=== PATIENT | female | born 1980 | race Caucasian/White ===

== ENCOUNTER 2024-09-20 16:54 | Inpatient (IN) | payer OTHER, SELFPAY ==
--- NOTE | 2024-09-20 18:13 | PC.NURSE ---
Patient cooperative with skin check complete with RN LATESHA and RN VENKAT. Bilateral leg edema with small open area on shins. No oozing or weeping observed. Reddened area under R breast, L groin fold.
[2024-09-20 18:22] VITALS: BP 132/71; PULSE 97; RESP 18; TEMP 36.2; O2SAT 98
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
[2024-09-20] MEDS: cephALEXin 500 MG CAPSULE PO (19:22)
[2024-09-20] MEDS: LORazepam 0.5 MG TABLET PO (19:22)
[2024-09-20] MEDS: Acetaminophen 325 MG TABLET 650 MG PO (19:24)
--- OUTSIDE RECORDS SUMMARY | 2024-09-20 20:23 | XMS_ITS | Encounter Summary ---
Author Organization [facility] Address [address] [place] [address] Care Team Providers Care Physician Internist Name Role Phone Stefanie Marques MD Primary Care Provider [phone] Reason for Visit * Reason Comments Mental Health Problem Encounter Details Date Type Department Care Team (Late st Contact Info) Description 09/09/2024 11:10 AM EST - 09/10/2024 1:[address] [facility] Emergency Department [address] [place] [address] Ashley Scales MD [address] [place] [phone] Barbara Navarro MD [address] [place] [id number] Gera Li MD [address] [place] [phone] Maddy (HCC) (Primary Dx) [facility]charge [facility]position: [facility] (INPT Psych facility/unit) (65) Social History Tobacco Use Types Packs/Day Years Used Date Smoking Tobacco: Former Cigarettes Smokeless Tobacco: Never Comments:: Alcohol Use Standard Drinks/Week Comments Yes 0 (1 standard drink = 0.6 oz pur e alcohol) socially Comments No Sex and Gender Information Value Date Recorded Sex Assigned at Female 06/22/2023 2:42 PM EST Legal Sex Female 6:16 AM EDT Gender Identity Not on file Sexual Orientation Straight 06/22/2023 2: 42 PM EST documented as of this encounter Last Filed Vital Signs Vital Sign Reading Time Taken Comments Blood Pressure 148/87 09/09/2024 8:18 PM EST Pulse 95 09/09/2024 8:18 PM EST Temperature 36.8 ??C (98.2 ??F) 09/09/2024 8:18 PM ES T Respiratory Rate 18 09/09/2024 8:18 PM EST Oxygen Saturation 99% 09/09/2024 8:18 PM EST Inhaled Oxygen Concentration - - Weight - - Height - - Body Mass Index - - documented in this encounter Medications at Time of Discharge acetaminophen (TYLENOL) 325 mg tablet Take 2 tablets (650 mg total) by mouth every 4 hours as needed for pain. 10/07/2022 aspirin 81 mg EC tablet Take 1 tablet (81 mg total) by mouth once a day. 10/08/2022 cholecalciferol (VITAMIN D3) 2,000 unit tablet Take 1 tablet by mouth once a day. docusate sodium (COLACE) 100 mg capsule Take 1 capsule (100 mg total) by mouth 2 times a day. 10/07/2022 escitalopram (LEXAPRO) 10 mg tablet Take 10 mg by mouth once a day. ferrous sulfate 325 mg (65 mg iron) tablet Take 325 mg by mouth daily with breakfast. fish oil 340-1,000 mg capsule Take 1,000 mg by mouth once a day. hydrOXYzine (ATARAX) 50 mg tablet Take 50 mg by mouth 3 times a day as needed for anxiety. labetaloL (NORMODYNE) 200 mg tablet Take 1 tablet (200 mg total) by mouth every 12 hours. 60 tablet 10/07/2022 lamoTRIgine (LaMICtal) 150 mg tablet Take 225 mg by mouth once a day. loratadine (CLARITIN) 10 mg tablet Take 10 mg by mouth daily. 03/20/2016 LORazepam (ATIVAN) 0.5 mg tablet Take 0.5 mg by mouth 2 times a day as needed for anxiety. multivitamin (THERAGRAN) tablet Take 1 tablet by mouth once a day. NIFEdipine XL (PROCARDIA XL) 90 mg tablet Take 90 mg by mouth daily. nystatin (MYCOSTATIN) 100,000 unit/gram powder Apply 1 application. topically to the affected area 3 times a day. Under breasts OLANZapine (ZyPREXA) 20 mg tablet Take 20 mg by mouth nightly. With 5 mg for a total of 25 mg OLANZapine (ZyPREXA) 5 mg tablet Take 15 mg by mouth nightly. omeprazole (PriLOSEC) 40 mg capsule Take 1 capsule by mouth once a day. prazosin (MINIPRESS) 2 mg capsule Take 6 mg by mouth nightly. QUEtiapine (SEROquel) 100 mg tablet Take 150 mg by mouth nightly. QUEtiapine (SEROquel) 300 mg tablet Take 300 mg by mouth nightly. 09/08/2024 senna (SENOKOT) 8.6 mg tablet Take 2 tablets (17.2 mg total) by mouth nightly. 10/07/2022 umeclidinium-orestes anteroL (Anoro Ellipta) 62.5-25 mcg/actuation blister with device Inhale 1 puff by mouth once a day. documented as of this encounter ED Notes * Ashley Scales MD - 09/09/2024 11:03 AM EST History HPI: Chief Complaint Patient presents with Mental Health Problem 44-year-old female history of schizoaffective disorder, borderline personality disorder presenting to the emergency department she says because the police told her that she needed to go and get checked out and get her legs checked out. She states that she has had chronic leg edema for many months now and that her primary doctor fired her. She has been trying everything and they are not any better. Her history is somewhat limited because her speech is pressured. She states that she does not wantto hurt herself. Patient History Past Medical History: Diagnosis Date Anemia Anxiety Borderline personality disorder (CMS/HCC) (HCC) Cellulitis Cellulitis of right breast 09/25/2016 Depression GERD (gastroesophageal reflux disease) Gout HLD (hyperlipidemia) HTN (hypertension) PTSD (post-traumatic stress disorder) Restrictive lung disease Schizoaffective disorder, bipolar type (CMS/HCC) (HCC) Vertigo Past Surgical History: Procedure Laterality Date CHOLECYSTECTOMY ID APPENDECTOMY N/A History of Appendectomy ID DELIVERY ONLY N/A History of Section ID REMOVAL OF FALLOPIAN TUBE N/A History of Salpingectomy WISDOM TOOTH EXTRACTION No family history on file. Social History Tobacco Use Smoking status: Former Current packs/day: 0.50 Types: Cigarettes Smokeless tobacco: Never Tobacco comments: : Vaping Use Vaping status: Never Used Substance Use Topics Alcohol use: Yes Comment: socially Drug use: No Vaping Questions Responses Vaping Use Never User Sexuality and Gender Identity Sexuality Patient's sexual orientation: Straight Legal Information Legal first name: Darleen Legal last name: Margo Legal sex: Female Gender Identity Patient's sex assigned at : Female Organ Inventory Organs the patient currently has: Organs present at or expected at to develop: Organs surgically enhanced or constructed: Organs hormonally enhanced or developed: breasts cervix ovaries uterus vagina penis prostate testes Review of Systems Review of Systems Unable to perform ROS: Psychiatric disorder Cardiovascular: Positive for leg swelling. Physical Exam Physical Exam ED Triage Vitals Temp Pulse Resp BP SpO2 -- -- -- -- -- Temp src Heart Rate Source Patient Position BP Location Set FiO2 (O2%) -- -- -- -- -- Physical Exam Vitals and nursing note reviewed. Constitutional: General: She is not in acute distress. Appearance: She is well-developed. HENT: Head: Normocephalic. Eyes: Conjunctiva/sclera: Conjunctivae normal. Pupils: Pupils are equal, round, and reactive to light. Cardiovascular: Rate and Rhythm: Normal rate and regular rhythm. Pulmonary: Effort: Pulmonary effort is normal. Breath sounds: Normal breath sounds. Abdominal: General: Bowel sounds are normal. Palpations: Abdomen is soft. Musculoskeletal: General: Normal range of motion. Cervical back: Normal range of motion and neck supple. Right lower leg: Edema present. Left lower leg: Edema present. Comments: Has chronic appearing lower extremity lymphedema without any overlying cellulitis bilaterally. 2+ pedal pulse bilaterally Skin: General: Skin is warm and dry. Neurological: Mental Status: She is alert. Comments: Patient is awake and alert but somewhat agitated and has pressured speech and is yelling at everyone. Medical Decision Making and ED Course Assessment and Plan: 44-year-old female history of borderline personality disorder as well as schizoaffective presenting to the emergency department with subacute chronic lymphedema which is what herexam most closely correlates with. She does not feel like she wants to hurt herself however the police told her that she needed to come to the emergency department to be evaluated. I do think becauseof her dysregulated behavior and her statements today she is not likely able to protect herself in the community without further evaluation by [facility] and to determine her safety. I did offer her testinginto her lower extremity swelling though I think that it is unlikely to be high yield. It appears that she has now allowed for this to happen. She is signed out on section 12 pending [facility] evaluation Darleen Aragon : 1980 CSN: [id number] Ashley Scales MD 09/09/24 1522 documented in this encounter Miscellaneous Notes * ED Continuation of Care - Barbara Navarro MD - 09/09/2024 7:06 PM EST ED Continuation of Care 09/09/24 7:06 PM Sign out from Dr. Ashley Scales Md MDM Pt seen by [facility]. No safety concerns but patient is manic. Patient agreeable to CSU bed. Does not need Sec 12 anymore. Sec 12 no longer in effect. ED Course as of 09/11/24 0738 ThuSep 09, [id number] I assumed care at 8:45 PM of this 44F who will be CSU bed search voluntarily [PL] ED Course User Index [PL] Gera Li MD Darleen Ryan Butlersydnie : 1980 CSN: [id number] documented in this encounter Plan of Treatment Upcoming Encounters Date Type Department Care Team (Late st Contact Info) Description 09/29/2024 8:30 AM EDT Office Visit [facility] [address] [facility] [address] [place] [address] Jose Haskins, OD [address] [place] [address] documented as of this encounter Procedures * Due to [facility] law, this organization might not be sharing negative HIV tests. Procedure Name Priority Date/Time Associated Diagnosis Comments N-TERMINAL PROBRAIN NATRIURETIC PEPTIDE STAT 09/09/2024 4:51 PM EST CBC AUTO DIFFERENTIAL STAT 09/09/2024 4:51 PM EST BASIC METABOLIC PANEL STAT 09/09/2024 4:51 PM EST documented in this encounter Results * Due to [place] [employer] law, this organization might not be sharing negative HIV tests. * (ABNORMAL) BMP - Basic Metabolic Panel (09/09/2024 4:51 PM EST) NA 139 135 - 145 mmol/L 09/09/2024 5:25 PM EST [facility] K 4.7 3.5 - 5.3 mmol/L 09/09/2024 5:25 PM EST [facility] Cl 101 98 - 107 mmol/L 09/09/2024 5:25 PM EST [facility] CO2 22 22 - 32 mmol/L 09/09/2024 5:25 PM EST [facility] BUN 10 7 - 23 mg/dL 09/09/2024 5:25 PM EST [facility] Creatinine 0.84 0.50 - 1.20 mg/dL 09/09/2024 5:25 PM EST [facility] Glucose 96 65 - 99 mg/dL 09/09/2024 5:25 PM EST [facility] Calcium 9.6 8.6 - 10.5 mg/dL 09/09/2024 5:25 PM EST [facility] Anion Gap 16(H) 5 - 15 09/09/2024 5:25 PM EST [facility] eGFR 87 >=60 mL/min/1. 73m2 09/09/2024 5:25 PM EST [facility] Comment:The estimated glomer ular filtration rate (eGFR) is calculated using a new formula developed by the NKF-ASN task force to eliminate race-based correction factors. The new formula uses serum/plasma creatinine, age, and gender to determine eGFR. A value below 60mls/min might indicate kidney disease and will be flagged. For additional information, see Olive et al, Am J Kidney Dis. 2021;79(2):268- 288, A Unifying Approach for GFR estimation: Recommendations of the NKF-ASN Task Force on Reassessing the Inclusion of Race in Diagnosing Kidney Disease . Blood Structure of peripheral vein / Unknown Venipuncture / Unknown 09/09/2024 4:51 PM EST 09/09/2024 4:51 PM EST us Ashley Scales MD LAB BLOOD ORDERABLES Breonna l Result [facility] [address] [place] [address], * (ABNORMAL) NT-proBNP (09/09/2024 4:51 PM EST) Pro-B-Type Natriuretic Peptide 365(H) <300 pg/mL 09/09/2024 5:28 PM EST [facility] Comment: Patient Age:? Congestive Heart Failure (CHF) Risk <18 Years:?Not Established 18-49 Years:? <300 pg/mL - Normal, CHF Unlikely ?>=450 pg/mL - High Probability of CHF 50-75 Years:? <300 pg/mL - Normal, CHF Unlikely ?>=900 pg/mL - High Probability of CHF >75 Years:?<300 pg/mL - Normal, CHF Unlikely ?>=1800 pg/mL - High Probability of CHF Blood Structure of peripheral vein / Unknown Venipuncture / Unknown 09/09/2024 4:51 PM EST 09/09/2024 4:51 PM EST us Ashley Scales MD LAB BLOOD ORDERABLES Breonna l Result [facility] [address] [place] [address], [place] * (ABNORMAL) CBC Auto Differential (09/09/2024 4:51 PM EST) WBC 10.0 3.8 - 10.8 10*3/uL 09/09/2024 4:56 PM EST [facility] RBC 4.93 3.80 - 5.10 10*6/uL 09/09/2024 4:56 PM EST [facility] Hemoglobin 13.2 11.7 - 15.5 g/dL 09/09/2024 4:56 PM EST [facility] Hematocrit 40.7 35.0 - 45.0 % 09/09/2024 4:56 PM EST [facility] MCV 82.6 80.0 - 100.0 fL 09/09/2024 4:56 PM EST [facility] MCH 26.8(L) 27.0 - 33.0 pg 09/09/2024 4:56 PM EST [facility] MCHC 32.4 32.0 - 36.0 g/dL 09/09/2024 4:56 PM EST [facility] RDW 14.8 11.0 - 15.0 % 09/09/2024 4:56 PM EST [facility] Platelets 367 140 - 400 10*3/uL 09/09/2024 4:56 PM EST [facility] MPV 9.9 7.5 - 12.5 fL 09/09/2024 4:56 PM EST [facility] Neutrophil % 73.6 % 09/09/2024 4:56 PM EST [facility] Immature Grans % 0.6 0.0 - 0.9 % 09/09/2024 4:56 PM EST [facility] Lymphocyte % 17.5 % 09/09/2024 4:56 PM EST [facility] Monocyte % 7.9 % 09/09/2024 4:56 PM EST [facility] Eosinophil % 0.1 % 09/09/2024 4:56 PM EST [facility] Basophil % 0.3 % 09/09/2024 4:56 PM EST [facility] Neutrophil # 7.32 1.50 - 7.80 10*3/uL 09/09/2024 4:56 PM EST [facility] Immature Grans # 0.06(H) <=0.03 10*3/uL 09/09/2024 4:56 PM EST [facility] Lymphocyte # 1.70 0.85 - 3.90 10*3/uL 09/09/2024 4:56 PM EST [facility] Monocyte # 0.80 0.20 - 0.95 10*3/uL 09/09/2024 4:56 PM EST [facility] Eosinophil # <0.03 0.02 - 0.50 10*3/uL 09/09/2024 4:56 PM EST [facility] Basophil # <0.03 0.00 - 0.20 10*3/uL 09/09/2024 4:56 PM EST [facility] nRBC % 0.0 /100 WBCs 09/09/2024 4:56 PM EST [facility] nRBC # <0.01 <0.01 10*3/uL 09/09/2024 4:56 PM EST [facility] Blood Structure of peripheral vein / Unknown Venipuncture / Unknown 09/09/2024 4:51 PM EST 09/09/2024 4:51 PM EST us Ashley Scales MD LAB BLOOD ORDERABLES Breonna l Result [facility] [address] [place] [address], documented in this encounter Visit Diagnoses Diagnosis Maddy (HCC)- Primary Bipolar I disorder, single manic episode, unspecified documented in this encounter Administered Medications Inactive Administered Medications - up to 3 most recent administrations Medication Order MAR Action Action Date Dose Rate Site acetaminophen (TYLENOL) tablet 650 mg 650 mg, oral, Once, On Thu09/09/24 at 1840, 1 dose, Patient may have acetaminophen for Pain/Headache/Fever >38C. Do not administer if patient has received Acetaminophen (Tylenol) within the past 4 hours. Max dose 975mg Given 09/09/2024 6:39 PM EST 650 mg labetaloL (NORMODYNE) tablet 200 mg 200 mg, oral, 2 times daily, First dose on Thu09/09/24 at 2100, Until Discontinued, Hold for SBP less than 100 mmHg or HR less than 50 bpm. Given 09/09/2024 8:35 PM EST 200 mg OLANZapine (ZyPREXA) tablet 15 mg 15 mg, oral, Nightly, First dose on Thu09/09/24 at 2100, Until Discontinued Given 09/09/2024 8:36 PM EST 15 mg prazosin (MINIPRESS) capsule 6 mg 6 mg, oral, Nightly, First dose on Thu09/09/24 at 2100, Until Discontinued Given 09/09/2024 8:36 PM EST 6 mg QUEtiapine (SEROquel) tablet 150 mg 150 mg, oral, Nightly, First dose on Thu09/09/24 at 2100, Until Discontinued Given 09/09/2024 8:36 PM EST 150 mg documented in this encounter Active and Recently Administered Medications Times are shown in EST. Scheduled Medication Order 09/08/2024 09/09/2024 09/10/2024 acetaminophen (TYLENOL) tablet 650 mg (COMPLETED) 650 mg, oral, Once, On Thu09/09/24 at 1840, 1 dose, Patient may have acetaminophen for Pain/Headache/Fever >38C. Do not administer if patient has received Acetaminophen (Tylenol) within the past 4 hours. Max dose 975mg 1839 (Given - Provider: Seamus Sampson RN) aspirin EC tablet 81 mg 81 mg, oral, Daily, First dose on Thu09/10/24 at 0900, Until Discontinued, Do not crush. cholecalciferol (VITAMIN D3) tablet 2,000 Units 2,000 Units, oral, Daily, First dose on Thu09/10/24 at 0900, Until Discontinued, Vitamin D3 1000 units = 25 mcg docusate sodium (COLACE) capsule 100 mg 100 mg, oral, 2 times daily, First dose on Thu09/10/24 at 0900, Until Discontinued escitalopram (LEXAPRO) tablet 10 mg 10 mg, oral, Daily, First dose on Thu09/10/24 at 0900, Until Discontinued ferrous sulfate EC tablet 325 mg 325 mg, oral, Daily, First dose on 09/10/24 at 0900, Until Discontinued, Do not chew or crush. Administer with water or juice between meals for maximum absorption. May administer with food if GI upset occurs; do not administer with milk or milk products. fish oil capsule 1,200 mg 1,200 mg, oral, Daily, First dose on Thu09/10/24 at 0900, Until Discontinued labetaloL (NORMODYNE) tablet 200 mg 200 mg, oral, 2 times daily, First dose on Thu09/09/24 at 2100, Until Discontinued, Hold for SBP less than 100 mmHg or HR less than 50 bpm. 2034 (Given - Provider: Dayna Flanagan RN) lamoTRIgine (LaMICtal) tablet 225 mg 225 mg, oral, Daily, First dose on Thu09/10/24 at 0900, Until Discontinued loratadine (CLARITIN) tablet 10 mg 10 mg, oral, Daily, First dose on Thu09/10/24 at 0900, Until Discontinued LORazepam (ATIVAN) injection 2 mg 2 mg, intramuscular, Once, On Thu09/09/24 at 1135, 1 dose 113 (Not Given - Provider: Manjula Sampson RN - Reason: Patient/family refused) miconazole 2% powder topical, 2 times daily, First dose on Thu09/10/24 at 0900, Until Discontinued, Apply to under breast multivitamin 1 tablet 1 tablet, oral, Daily, First dose on Thu09/10/24 at 0900, Until Discontinued NIFEdipine XL (PROCARDIA XL) tablet 90 mg 90 mg, oral, Daily, First dose on Thu09/10/24 at 0900, Until Discontinued, Do not crush. OLANZapine (ZyPREXA) injection 10 mg 10 mg, intramuscular, Once, On Thu09/09/24 at 1135, 1 dose, Reconstitute with 2.1 mL of sterile water for injection. Concentration = 5 mg/mL. 1134 (Not Given - Provider: Manjula Sampson RN - Reason: Patient/family refused) OLANZapine (ZyPREXA) tablet 15 mg 15 mg, oral, Nightly, First dose on Thu09/09/24 at 2100, Until Discontinued 2035 (Given - Provider: Dayna Flanagan RN) pantoprazole DR (PROTONIX) tablet 40 mg 40 mg, oral, Daily, First dose on 09/10/24 at 0900, Until Discontinued, Do not crush. prazosin (MINIPRESS) capsule 6 mg 6 mg, oral, Nightly, First dose on Thu09/09/24 at 2100, Until Discontinued 2035 (Given - Provider: Dayna Flanagan, RYAN) QUEtiapine (SEROquel) tablet 150 mg 150 mg, oral, Nightly, First dose on Thu09/09/24 at 2100, Until Discontinued 2035 (Given - Provider: Dayna Flanagan RN) senna (SENOKOT) tablet 17.2 mg 17.2 mg, oral, Nightly, First dose on Thu09/09/24 at 2100, Until Discontinued 2036 (Not Given - Provider: Dayna Flanagan RN - Reason: Patient/family refused) tiotropium-olodateroL (STIOLTO RESPIMAT) 2.5 mcg-2.5 mcg mist inhaler 2 puff 2 puff, inhalation, Daily, First dose on 09/10/24 at 0900, Until Discontinued PRN Medication Order 09/08/2024 09/09/2024 09/10/2024 acetaminophen (TYLENOL) tablet 650 mg 650 mg, oral, Every 4 hours PRN, pain, Starting on Thu09/09/24 at 2012, Until 09/10/24 at 0325 hydrOXYzine HCL (ATARAX) tablet 50 mg 50 mg, oral, 3 times daily PRN, anxiety, Starting on Thu09/09/24 at 2014, Until 09/10/24 at 0325 LORazepam (ATIVAN) tablet 0.5 mg 0.5 mg, oral, 2 times daily PRN, anxiety, Starting on Thu09/09/24 at 2012, Until 09/10/24 at 0325 documented in this encounter Care Teams Physician Internist Relationship Specialty Start Date End Date Stefanie Marques MD [address] [place] [phone] PCP - General Internal Medicine 04/07/18 documented as of this encounter
--- OUTSIDE RECORDS SUMMARY | 2024-09-20 20:23 | XMS_ITS | Clinical Summary ---
Author Organization [facility] Address [address] [place] [address] Care Team Providers [facility] Name Role Phone Stefanie Marques MD Primary Care Provider [phone] Allergies Active Allergy Reactions Criticality Noted Date Comments Haloperidol Psychosis 09/19/2024 Medications * This document contains information received from the source organization and may not represent a complete record from that organization. loratadine (CLARITIN) 10 mg tablet Take 10 mg by mouth daily. 03/20/20 16 Active NIFEdipine XL (PROCARDIA XL) 90 mg tablet Take 90 mg by mouth daily. Active ferrous sulfate 325 mg (65 mg iron) tablet Take 325 mg by mouth daily with breakfast. Active lamoTRIgine (LaMICtal) 150 mg tablet Take 225 mg by mouth once a day. Active QUEtiapine (SEROquel) 100 mg tablet Take 150 mg by mouth nightly. Active OLANZapine (ZyPREXA) 5 mg tablet Take 15 mg by mouth nightly. Active hydrOXYzine (ATARAX) 50 mg tablet Take 50 mg by mouth 3 times a day as needed for anxiety. Active prazosin (MINIPRESS) 2 mg capsule Take 6 mg by mouth nightly. Active cholecalcifero l (VITAMIN D3) 2,000 unit tablet Take 1 tablet by mouth once a day. Active multivitamin (THERAGRAN) tablet Take 1 tablet by mouth once a day. Active OLANZapine (ZyPREXA) 20 mg tablet Take 20 mg by mouth nightly. With 5 mg for a total of 25 mg Active acetaminophen (TYLENOL) 325 mg tablet Take 2 tablets (650 mg total) by mouth every 4 hours as needed for pain. 10/08/19 Active aspirin 81 mg EC tablet Take 1 tablet (81 mg total) by mouth once a day. 10/09/19 Active docusate sodium (COLACE) 100 mg capsule Take 1 capsule (100 mg total) by mouth 2 times a day. 10/08/19 Active labetaloL (NORMODYNE) 200 mg tablet Take 1 tablet (200 mg total) by mouth every 12 hours. 60 tablet 10/08/19 025 Active Additional Information Patient taking differently:200 mg oral2 times daily, Reported on 09/09/2024 senna (SENOKOT) 8.6 mg tablet Take 2 tablets (17.2 mg total) by mouth nightly. 10/08/19 Active fish oil 340-1,000 mg capsule Take 1,000 mg by mouth once a day. Active nystatin (MYCOSTATIN) 100,000 unit/gram powder Apply 1 application. topically to the affected area 3 times a day. Under breasts Active omeprazole (PriLOSEC) 40 mg capsule Take 1 capsule by mouth once a day. Active LORazepam (ATIVAN) 0.5 mg tablet Take 0.5 mg by mouth 2 times a day as needed for anxiety. Active escitalopram (LEXAPRO) 10 mg tablet Take 10 mg by mouth once a day. Active umeclidinium-v ilanteroL (Anoro Ellipta) 62.5-25 mcg/actuation blister with device Inhale 1 puff by mouth once a day. Active escitalopram (LEXAPRO) 10 mg tablet Take 1 tablet by mouth once a day. Active hydrOXYzine (VISTARIL) 50 mg capsule Take 50 mg by mouth daily as needed for anxiety. Active prazosin (MINIPRESS) 2 mg capsule Take 2 capsules by mouth at bed time. Active QUEtiapine (SEROquel) 300 mg tablet Take 300 mg by mouth nightly. 09/08/19 Active lithium ER (Lithobid) 300 mg tablet Take 600 mg by mouth at bed time. Active omeprazole OTC (PriLOSEC OTC) 20 mg EC tablet Take 20 mg by mouth daily. 04/29/20 16 025 Discontinued (Therapy Completed or No Longer Needed) mirtazapine (REMERON) 45 mg tablet Take 45 mg by mouth nightly. 025 Discontinued (Therapy Completed or No Longer Needed) methocarbamoL (ROBAXIN) 500 mg tablet Take 1 tablet (500 mg total) by mouth 2 times a day. 20 tablet 01/20/20 025 Discontinued (Therapy Completed or No Longer Needed) lidocaine (LIDODERM) 5% patch Apply 1 patch topically to the affected area once a day. Remove and discard patch within 12 hours or as directed. 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) 2019 Bipolar disorder 09/22/2019 Posttraumatic stress disorder 09/22/2019 Morbid obesity 08/23/2018 Obstructive sleep apnea syndrome 02/08/2018 Overview (06/30/2023): severe Premature menopause 06/22/2017 Iron deficiency 12/10/2016 Restrictive lung disease 12/10/2016 Lactose intolerance 09/25/2016 Gout 09/19/2016 Infertility, female 07/28/2016 GERD (gastroesophageal reflux disease) 6 Amenorrhea 04/29/2016 Breast hypertrophy 04/11/2015 Fungal dermatitis 04/11/2015 Back pain 04/11/2015 Morbid obesity with BMI of 50.0-59.9, adult 03/21 Urinary incontinence in female 11/24/2014 Shoulder pain, left 11/24/2014 Shingles 09/25/2014 Constipation 09/21/2014 Hypokalemia 09/21/2014 Pharyngitis, acute 05/23/2014 Allergic rhinitis 03/16/2014 Schizophrenia 03/16/2014 Hypertension, benign 03/16/2014 Overview (04/10/2017): Patient actively trying to get , limiting meds to only those safe for Resolved Problems Problem Noted Date Diagnosed Date Resolved Date Chest pain 10/04/2022 10/07/2022 Prolonged QT interval 10/04/20222022 Cellulitis of right breast 09/25/2016 1 08/31/2022 Encounters Date Type Department Care Team Description 09/19/2024 4:31 AM EST - 09/20/2024 3:14 PM EST Emergency [facility] Emergency Department [address] [place] [phone] Bruce Chester, Hans Pendleton, MD Chao, Dayna Stein, Gera Altamirano, MD Del Rio, Gabriel Stein, Ashley Lou MD Maddy (HCC) (Primary Dx) Discharge Disposition: [facility] () 09/09/2024 11:10 AM EST - 09/10/2024 1:23 AM EST Emergency [facility] Emergency Department [address] [place] [phone] Ashley Scales MD Costigan, Amy D, Gera Altamirano MD Maddy (HCC) (Primary Dx) Discharge Disposition: [facility] (INPT Psych facility/unit) (65) 08/25/2024 7:59 PM EST - 08/26/2024 10:22 AM [facility] Emergency [facility] Emergency Department [address] [place] [phone] Da Hawk MD McQuaide, Brian L., Gera Altamirano MD 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 (HCC) (Primary Dx) Discharge Disposition: [facility] () from Last 3 Months Social History Tobacco Use Types Packs/Day Years Used Date Smoking Tobacco: Former Cigarettes Smokeless Tobacco: Never Tobacco Cessation:Counseling Given: Not Answered Comments:: Alcohol Use Standard Drinks/Week Comments Yes 0 (1 standard drink = 0.6 oz pur e alcohol) socially Comments No Sex and Gender Information Value Date Recorded Sex Assigned at Female 06/22/2023 2:42 PM EST Legal Sex Female 6:16 AM EDT Gender Identity Not on file Sexual Orientation Straight 06/22/2023 2: 42 PM EST Last Filed Vital Signs Vital Sign Reading Time Taken Comments Blood Pressure 147/99 09/20/2024 8:11 AM EST Pulse 104 09/20/2024 8:11 AM EST Temperature 36.2 ??C (97.2 ??F) 09/19/2024 4:40 AM ES T Respiratory Rate 20 09/20/2024 8:11 AM EST Oxygen Saturation 97% 09/20/2024 8:11 AM EST Inhaled Oxygen Concentration - - Weight 174.6 kg (385 lb) 09/19/2024 4:38 AM EST Height 175.3 cm (5' 9 ) 01/20/2024 10:47 AM EDT Body Mass Index 56.85 01/20/2024 10:47 AM EDT Plan of Treatment Upcoming Encounters Date Type Department Care Team (Late st Contact Info) Description 09/29/2024 8:30 AM EDT Office Visit [facility] [address] [facility] [address] [place] [address] Jose Haskins, OD [address] [place] [address] Health Maintenance Due Date Last Done Comments Colonoscopy 1979 FOBT / Fit Test 1979 HIV Screening 1979 HPV and Pap Smear 1979 Sigmoidoscopy 1979 Hepatitis B Vaccines (1 of 3 - 19+ 3-dose series) 1998 DTaP,Tdap,and Td Vaccines (1 - Tdap) 2001 Cervical Cancer Screening 11/11/2004 Pap Smear 11/11/2004 11/11/2001 COVID-19 Vaccine (3 - season) 2024 01/27/2021, 01/06/2021 Influenza Vaccine (#1) 2024 Alcohol/Substance Use Screening 07/20/2024 Depression Evaluation 07/20/2024 Social Drivers of Health Annual Screening 07/20/2024 Mammogram 08/26/2025 08/26/2023, 11/0 11/2020, 05/23/2021 Basic Metabolic Panel 09/20/2025 09/20/2024 , 09/09/2024, 10/05/2022, Additional history exists Cologuard 06/26/2027 06/26/2024, 06/26/2024 Colon Cancer Screening 06/26/2027 RSV Vaccine (60+ years old and patients) (1 - 1-dose 75+ series) 2054 Hepatitis C Screening Completed 10/02/2011 Pneumococcal Vaccine: Pediatric (0-5 Years) and At-Risk Patients (6-50 Years) Aged Out No longer eligible based on patient's age to complete this topic Procedures * Due to [place] state law, this organization might not be sharing negative HIV tests. Procedure Name Priority Date/Time Associated Diagnosis Comments DRUGS OF ABUSE SCREEN, URINE STAT 09/20/2024 9:50 AM EST COMPREHENSIVE METABOLIC PANEL STAT 09/20/2024 9:16 AM EST CBC AUTO DIFFERENTIAL STAT 09/20/2024 9:16 AM EST LITHIUM LEVEL STAT 09/20/2024 9:16 AM EST BASIC METABOLIC PANEL STAT 09/09/2024 4:51 PM EST N-TERMINAL PROBRAIN NATRIURETIC PEPTIDE STAT 09/09/2024 4:51 PM EST CBC AUTO DIFFERENTIAL STAT 09/09/2024 4:51 PM EST RAPID COVID-19 RNA FOR SURVEILLANCE (ED ONLY) STAT 08/25/2024 9:36 PM EST HEPATITIS C ANTIBODY, CONVERSION Routine 10/02/2011 2:37 PM EDT PAP Routine 11/11/2001 10:07 AM EDT from Last 3 Months or Most Recently Relevant to Health Maintenance Results * Due to [place] state law, this organization might not be sharing negative HIV tests. * (ABNORMAL) Drugs of Abuse Screen, Urine (09/20/2024 9:50 AM EST) [facility] Amphetamine Screen, Urine Negative Negative 09/20/2024 10:22 AM EST [facility] Comment: Detection limit of 1000 ng/mL of d-Methamphetamine. Drug results are to be used only for medical purposes. ??Unconfirmed screening results must not be used for non-medical purposes. Barbiturate Screen, Urine Negative Negative 09/20/2024 10:22 AM EST [facility] Comment: Detection limit of 200 ng/mL of Secobarbital. Drug results are to be used only for medical purposes. ??Unconfirmed screening results must not be used for non-medical purposes. Benzodiazepine Screen, Urine Presumptive Positive(A) Negative 09/20/2024 10:22 AM EST [facility] Comment: Detection limit of 200 ng/mL of Nordiazepam. Drug results are to be used only for medical purposes. ??Unconfirmed screening results must not be used for non-medical purposes. Buprenorphine Screen, Urine Negative Negative 09/20/2024 10:22 AM EST [facility] Comment: Detection limit of 10 ng/mL of norbuprenorphine. Drug results are to be used only for medical purposes. ??Unconfirmed screening results must not be used for non-medical purposes. Cocaine Metabolite Screen, Urine Negative Negative 09/20/2024 10:22 AM EST [facility] Comment: Detection limit of 300 ng/mL of Benzoylecgonine. Drug results are to be used only for medical purposes. ??Unconfirmed screening results must not be used for non-medical purposes. Marijuana Screen, Urine Negative Negative 09/20/2024 10:22 AM EST [facility] Comment: Detection limit of 50 ng/mL of 40-Xme-pszjj-5-YMH-7-carboxylic acid. Drug results are to be used only for medical purposes. ??Unconfirmed screening results must not be used for non-medical purposes. Methadone Metabolite Screen, Urine Negative Negative 09/20/2024 10:22 AM EST [facility] Comment: Detection limit of 300 ng/mL of Methadone. Drug results are to be used only for medical purposes. ??Unconfirmed screening results must not be used for non-medical purposes. Oxycodone Screen, Urine Negative Negative 09/20/2024 10:22 AM EST [facility] Comment: Detection limit of 100 ng/mL of Oxycodone. Drug results are to be used only for medical purposes. ??Unconfirmed screening results must not be used for non-medical purposes. Opiate Screen, Urine Negative Negative 09/20/2024 10:22 AM EST [facility] Comment: Detection limit of 300 ng/mL of Morphine. Drug results are to be used only for medical purposes. ??Unconfirmed screening results must not be used for non-medical purposes. Fentanyl Screen, Urine Negative Negative 09/20/2024 10:22 AM EST [facility] Comment: Detection limit of 5 ng/mL of norfentanyl. Drug results are to be used only for medical purposes. ??Unconfirmed screening results must not be used for non-medical purposes. Urine Urine specimen collection, clean catch / Unknown Non-Blood Collection / Unknown 09/20/2024 9:50 AM EST 09/20/2024 9:50 AM EST us Ashley Scales MD LAB URINE ORDERABLES Breonna ku Result [facility] [address] [place] [address], * (ABNORMAL) CBC Auto Differential (09/20/2024 9:16 AM EST) Only the most recent of2 resultswithin the time period is included. WBC 6.6 3.8 - 10.8 10*3/uL 09/20/2024 9:25 AM EST [facility] RBC 4.90 3.80 - 5.10 10*6/uL 09/20/2024 9:25 AM EST [facility] Hemoglobin 13.2 11.7 - 15.5 g/dL 09/20/2024 9:25 AM EST [facility] Hematocrit 40.7 35.0 - 45.0 % 09/20/2024 9:25 AM EST [facility] MCV 83.1 80.0 - 100.0 fL 09/20/2024 9:25 AM EST [facility] MCH 26.9(L) 27.0 - 33.0 pg 09/20/2024 9:25 AM EST [facility] MCHC 32.4 32.0 - 36.0 g/dL 09/20/2024 9:25 AM EST [facility] RDW 14.7 11.0 - 15.0 % 09/20/2024 9:25 AM EST [facility] Platelets 310 140 - 400 10*3/uL 09/20/2024 9:25 AM EST [facility] MPV 10.2 7.5 - 12.5 fL 09/20/2024 9:25 AM EST [facility] Neutrophil % 64.1 % 09/20/2024 9:25 AM EST [facility] Immature Grans % 0.3 0.0 - 0.9 % 09/20/2024 9:25 AM EST [facility] Lymphocyte % 26.9 % 09/20/2024 9:25 AM EST [facility] Monocyte % 8.2 % 09/20/2024 9:25 AM EST [facility] Eosinophil % 0.2 % 09/20/2024 9:25 AM EST [facility] Basophil % 0.3 % 09/20/2024 9:25 AM EST [facility] Neutrophil # 4.20 1.50 - 7.80 10*3/uL 09/20/2024 9:25 AM EST [facility] Immature Grans # <0.03 <=0.03 10*3/uL 09/20/2024 9:25 AM EST [facility] Lymphocyte # 1.80 0.85 - 3.90 10*3/uL 09/20/2024 9:25 AM EST [facility] Monocyte # 0.50 0.20 - 0.95 10*3/uL 09/20/2024 9:25 AM EST [facility] Eosinophil # <0.03 0.02 - 0.50 10*3/uL 09/20/2024 9:25 AM EST [facility] Basophil # <0.03 0.00 - 0.20 10*3/uL 09/20/2024 9:25 AM EST [facility] nRBC % 0.0 /100 WBCs 09/20/2024 9:25 AM EST [facility] nRBC # <0.01 <0.01 10*3/uL 09/20/2024 9:25 AM EST [facility] Blood Structure of peripheral vein / Unknown Venipuncture / Unknown 09/20/2024 9:16 AM EST 09/20/2024 9:22 AM EST us Ashley Scales MD LAB BLOOD ORDERABLES Breonna l Result [facility] [address] [place] [address], [place] * (ABNORMAL) Geddes Level (09/20/2024 9:16 AM EST) Geddes <0.1(L) 0.6 - 1.2 mmol/L 09/20/2024 10:07 AM EST [facility] Blood Structure of peripheral vein / Unknown Venipuncture / Unknown 09/20/2024 9:16 AM EST 09/20/2024 9:22 AM EST us Dayna Chao MD LAB BLOOD ORDERABLES Breonna ku Result [facility] [address] [place] [id number], [place] * (ABNORMAL) Comprehensive Metabolic Panel (09/20/2024 9:16 AM EST) NA 140 135 - 145 mmol/L 09/20/2024 9:54 AM EST [facility] K 4.0 3.5 - 5.3 mmol/L 09/20/2024 9:54 AM EST [facility] Cl 104 98 - 107 mmol/L 09/20/2024 9:54 AM EST [facility] CO2 25 22 - 32 mmol/L 09/20/2024 9:54 AM EST [facility] Anion Gap 11 5 - 15 09/20/2024 9:54 AM EST [facility] Glucose 134(H) 65 - 99 mg/dL 09/20/2024 9:54 AM EST [facility] Creatinine 0.75 0.50 - 1.20 mg/dL 09/20/2024 9:54 AM EST [facility] Calcium 9.5 8.6 - 10.5 mg/dL 09/20/2024 9:54 AM EST [facility] Total Protein 7.2 6.0 - 8.0 g/dL 09/20/2024 9:54 AM EST [facility] Albumin 4.0 3.5 - 5.2 g/dL 09/20/2024 9:54 AM EST [facility] Bilirubin, Total 0.4 0.2 - 1.2 mg/dL 09/20/2024 9:54 AM EST [facility] Alkaline Phosphatase 88 35 - 129 U/L 09/20/2024 9:54 AM EST [facility] AST 23 10 - 40 U/L 09/20/2024 9:54 AM EST [facility] ALT 28 10 - 40 U/L 09/20/2024 9:54 AM EST [facility] BUN 12 7 - 23 mg/dL 09/20/2024 9:54 AM EST [facility] eGFR >90 >=60 mL/min/1 .73m2 09/20/2024 9:54 AM EST [facility] Comment:The estimated glomer ular filtration rate [...] of Race in Diagnosing Kidney Disease . Globulin, Total 3.2 2.1 - 4.2 g/dL 09/20/2024 9:54 AM EST [facility] A/G Ratio 1.3(L) 1.5 - 3.0 09/20/2024 9:54 AM EST [facility] Blood Structure of peripheral vein / Unknown Venipuncture / Unknown 09/20/2024 9:16 AM EST 09/20/2024 9:22 AM EST us Ashley Scales MD LAB BLOOD ORDERABLES Breonna ku Result [facility] [address] [place] [address], * (ABNORMAL) NT-proBNP (09/09/2024 4:51 PM EST) Pro-B-Type Natriuretic Peptide 365(H) <300 pg/mL 09/09/2024 5:28 PM EST [facility] Comment: Patient Age:? Congestive Heart Failure [...] Ashley Scales MD LAB BLOOD ORDERABLES Breonna kings Result [facility] [address] [place] [address], * (ABNORMAL) BMP - Basic Metabolic Panel [...] - 10.5 mg/dL 09/09/2024 5:25 PM EST [facility] Anion Gap 16(H) 5 - 15 09/09/2024 5:25 PM EST [facility] eGFR 87 >=60 mL/min/1. 73m2 09/09/2024 5:25 PM EST [facility] Comment:The estimated glomer ular filtration rate [...] MD LAB BLOOD ORDERABLES Breonna l Result [facility] [address] [place] [address], * Rapid COVID-19 for Surveillance - Psych/Admission (08/25/2024 9:36 PM EST) [facility] PCR, SARS CoV-2 RNA Not Detected Not Detected CEPHEID GENEXPERT 08/25/2024 10:14 PM EST [facility] Comment:A Not Detected (Nega tive) test result is indicative of the absence of SARS-CoV-2 RNA at the level of LoD (Limit of Detection). A negative result does not rule out the possibility of COVID-19 and should not be used as the sole basis for treatment or patient management decisions. If COVID-19 is still suspected, based on exposure history together with other clinical findings, re-testing should be considered. Swab Specimen from nasopharyngeal structure / Unknown 08/25/2024 9:36 PM EST 08/25/2024 9:36 PM EST Narrative [facility] - 08/25/2024 10:14 PM EST This test was developed, validated and its performance characteristics determined by [facility]. This test has not been cleared or approved by the U.S. Food and Drug Administration (FDA). FDA Policy for Diagnostic Tests for Coronavirus Disease-2019 during the Public Health Emergency issued October 03, 2019, is followed. us Da Hawk MD LAB BODY FLUIDS AND STOOLS ORDERABLES Final Result Performing Organization Address City/[facility]/ZIP Co de Phone Number [facility] [address] [place] [address], [place] * HEPATITIS C ANTIBODY, CONVERSION (10/02/2011 2:37 PM EDT) Pathologist [facility] Hepatitis C Antibody <0.02 <1.00 IV [facility] Comment: Negative Not infected with HCV, unless recent infection is suspected or other evidence exists to indicate HCV infection. 10/02/2011 2:37 PM EDT 10/02/2011 11:42 PM EDT us Yumiko ENRIQUE LAB HISTORICAL RESULTS Final Result Performing Organization Address [facility] Co de Phone Number [facility] [address] [place] [address], [place] * Pap (11/11/2001 10:07 AM EDT) Path Procedure VCE ([id number]) 1 ?? Edited by: [id number] GRETEL [facility] Specimen Labeled As: 1 CERVICAL/ENDOCER VICAL CYTO MATERIAL - Edited by: [id number] BENEDICTO-RE [facility] Diagnosis ?GYNE PAP SMEAR ? ADEQUACY: ? Satisfactory but limited by no endocervical ? component ? GENERAL DIAGNOSTIC CATEGORY: ? Within NORMAL limits ?? Edited by: [id number] - 1040 [id number] [facility] Gynecologic Clinical Data Specimen source:, CERVICAL/ENDOCER VICAL (1 SLIDE) [facility] Gynecologic Clinical Data First date of LMP:, UNK [facility] Marker 1 RG,SHIVANI HECTOR [facility] Marker 2 WNL,Within Normal limits [facility] Cc Results To JOURDAN CHAUDHRY [facility] [id number] [facility] Signature REPORT SIGNED: SHIVANI YOUNG 11/19/01 [facility] Sign Out Audit SHIVANI YOUNG [id number] FINAL NEW RAYQIAN [id number] [facility] Cytology / Unknown 2 10:07 AM EDT 11/17/2001 10:07 AM EDT us Na Bhatt MD LAB PATHOLOGY/CYTOLOGY ORDJacqueline THOMASON Final Result [facility] [address] [place] [address], from Last 3 Months or Most Recently Relevant to Health Maintenance Insurance [employer] [address] [place] [address] Advance Directives Documents on File Type Date Recorded Patient Negotiator Sales Expl anation Advance Directive 08/21/2014 12:00 AM Advan ce Care Directives Advance Directive 08/21/2014 12:00 AM Advan ce Care Directives * Full Code (Latest Code Status on File) Date Activated Date Inactivated Comments 10/04/2022 11:17 AM 10/07/2022 5:30 PM * Presumed Full Code Date Activated Date Inactivated Comments 10/04/2022 8:24 AM 10/04/2022 11:17 AM Care Teams [facility] Relationship Specialty Start Date End Date Stefanie Marques MD [address] [place] [id number] PCP - General Internal Medicine 04/07/18
--- OUTSIDE RECORDS SUMMARY | 2024-09-20 20:23 | XMS_ITS | Encounter Summary ---
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 Stefanie Marques MD Primary Care Provider [phone] Reason for Visit * Reason Comments Mental Health Problem Encounter Details Date Type Department Care Team (Late st Contact Info) Description 09/19/2024 4:31 AM EST - 09/20/2024 3:14 PM EST Emergency [facility] Emergency Department [address] [place] [address] Bruce Chester MD [address] [place] [phone] Hans Mckenzie MD [address] [place] [phone] Dayna Chao MD [address] [place] [id number] Gera Li MD [address] [place] [phone] Gabriel Dle Rio MD [address] [place] [phone] Ashley Scales MD [address] [place] [phone] Maddy (HCC) (Primary Dx) Discharge Disposition: Short Term/Acute Care [facility] (02) Social History Tobacco Use Types Packs/Day Years [...] (385 lb) 09/19/2024 4:38 AM EST Height - - Body Mass Index 56.85 01/20/2024 10:47 AM EDT documented in this encounter Medications at Time [...] 10 mg by mouth once a day. escitalopram (LEXAPRO) 10 mg tablet Take 1 tablet by mouth once a day. ferrous sulfate 325 mg (65 mg iron) tablet Take 325 mg by mouth daily with breakfast. fish oil 340-1,000 mg capsule Take 1,000 mg by mouth once a day. hydrOXYzine (ATARAX) 50 mg tablet Take 50 mg by mouth 3 times a day as needed for anxiety. hydrOXYzine (VISTARIL) 50 mg capsule Take 50 mg by mouth daily as needed for anxiety. labetaloL (NORMODYNE) 200 mg tablet Take 1 tablet (200 mg total) by mouth every 12 hours. 60 tablet 10/07/2022 lamoTRIgine (LaMICtal) 150 mg tablet Take 225 mg by mouth once a day. lithium ER (Lithobid) 300 mg tablet Take 600 mg by mouth at bed time. loratadine (CLARITIN) 10 mg tablet Take 10 [...] capsule Take 6 mg by mouth nightly. prazosin (MINIPRESS) 2 mg capsule Take 2 capsules by mouth at bed time. QUEtiapine (SEROquel) 100 mg tablet Take 150 mg by mouth nightly. QUEtiapine (SEROquel) 300 mg tablet Take 300 mg by mouth nightly. 09/08/2024 senna (SENOKOT) 8.6 mg tablet Take 2 tablets (17.2 mg total) by mouth nightly. 10/07/2022 umeclidinium-orestes anteroL (Anoro Ellipta) 62.5-25 mcg/actuation blister with device Inhale 1 puff by mouth once a day. documented as of this encounter Miscellaneous Notes * ED Continuation of Care - Ashley Scales MD - 09/20/2024 2:29 PM EST ED Continuation of Care 09/20/24 2:29 PM Sign out from Dr. Gabriel Del Rio Md Assessment and Plan: Transfer to facility ED Course as of 09/20/24 1429 Mon Sep 19, 2024 0536 Called to bedside by nursing staff as patient had become agitated and was yelling, throwing things. Attempted to verbally de-escalate patient, however she would not participate in any constructive conversation. She continues to shout obscenities at the staff and yelling that she will leave AMA. After verbal de- escalation was unsuccessful, ordered for 4 mg of Versed IM. Will monitor closely. [RS] 2158 I assumed care of this 44yo now S12, IPBS. Also has cellulitis L leg, keflex [PL] ED Course User Index [PL] Gera Li MD [RS] MD Darleen Carroll Ryan Margo : 1980 CSN: [id number] * Plan of Care - Yumiko Domínguez RN - 09/20/2024 10:16 AM EST Multidisciplinary Rounds took place this am and present were representatives and leaders from [facility], [facility] Care Coordination and ED. Plan of care for this patient was discussed and the followingis a summary: Inpatient bed search in progress. Ehsan is reviewing. * ED Continuation of Care - Ashley Scales MD - 09/20/2024 9:03 AM EST ED Continuation of Care 09/20/24 9:03 AM Sign out from Dr. Gabriel Del Rio Md Assessment and Plan: Seen by [facility] today who agrees that she still needs an inpatient bed search on asection 12. Will redo evaluation to remedy where the patient was noted to need help with bathing and dressing herself which is not true and had been a barrier to placement. ED Course as of 09/20/24 0903 ThuSep 19, 2024 0536 Called to bedside by nursing staff as patient had become agitated and was yelling, throwing things. Attempted to verbally de-escalate patient, however she would not participate in any constructive conversation. She continues to shout obscenities at the staff and yelling that she will leave AMA. After verbal de- escalation was unsuccessful, ordered for 4 mg of Versed IM. Will monitor closely. [RS] 2158 I assumed care of this 44yo now S12, IPBS. Also has cellulitis L leg, keflex [PL] ED Course User Index [PL] Gera Li MD [RS] MD Darleen Carroll : 1980 CSN: [id number] * ED Continuation of Care - Gera Li MD - 09/20/2024 3:19 AM EST ED Continuation of Care Darleen Aragon : 1980 CSN: [id number] 3:19 AM 09/20/24 I assumed care of this patient from the previous ED provider, Dr. Dayna Chao Md. Patient here with behavioral health concerns. Please see the documentation from previous providers and ED course below for full clinical course and any acute events that occurred during my shift. ED Course ED Course as of 09/20/24 0319 ThuSep 19, 2024 0536 Called to bedside by nursing staff as patient had become agitated and was yelling, throwing things. Attempted to verbally de-escalate patient, however she would not participate in any constructive conversation. She continues to shout obscenities at the staff and yelling that she will leave AMA. After verbal de- escalation was unsuccessful, ordered for 4 mg of Versed IM. Will monitor closely. [RS] 3828 I assumed care of this 44yo now S12, IPBS. Also has cellulitis L leg, keflex [PL] ED Course User Index [PL] Gera Li MD [RS] Bruce Chester MD [facility] Gera Li MD, PhD Department of Emergency Medicine [facility] This note was completed with the assistance of voice recognition software. Although it has been reviewed for errors, please excuse any typos or inaccurate word replacements. * ED Continuation of Care - Hans Mckenzie MD - 09/19/2024 7:04 AM EST ED Continuation of Care 09/19/24 7:04 AM Sign out from Dr. Bruce Chester Md [facility] Patient reevaluated approximately 7 AM. She is awake and alert. She is apologetic for some statement she had made overnight. I reassured the patient that it will not influence the care she received. Patient at this time is stable for [facility] evaluation 9:06 AM Patient has been evaluated by [facility] and ready early inpatient bed search Darleen Silvadavis : 1980 CSN: [id number] documented in this encounter Plan of Treatment Upcoming Encounters Date Type Department Care Team (Late st Contact Info) Description 09/29/2024 8:30 AM EDT Office Visit [facility] [address] [facility] [address] [place] [address] Jose Haskins, OD [address] [place] [address] documented as of this encounter Procedures * Due to [place] MONOQI law, this organization might not be sharing negative HIV tests. Procedure Name Priority Date/Time Associated Diagnosis Comments DRUGS OF ABUSE SCREEN, URINE STAT 09/20/2024 9:50 AM EST CBC AUTO DIFFERENTIAL STAT 09/20/2024 9:16 AM EST LITHIUM LEVEL STAT 09/20/2024 9:16 AM EST COMPREHENSIVE METABOLIC PANEL STAT 09/20/2024 9:16 AM EST documented in this encounter Results * Due to [place] MONOQI law, this organization might not be sharing negative HIV tests. * (ABNORMAL) Drugs of Abuse Screen, Urine (09/20/2024 9:50 AM EST) [facility] Amphetamine Screen, Urine Negative Negative 09/20/2024 10:22 AM EST [facility] Comment: Detection limit of 1000 ng/mL of d-Methamphetamine. Drug results are to be used only for medical purposes. ??Unconfirmed screening results must not be used for non-medical purposes. Barbiturate Screen, Urine Negative Negative 09/20/2024 10:22 AM EST [facility] Comment: Detection limit of 200 ng/mL of Secobarbital. Drug results are to be used only for medical purposes. ??Unconfirmed screening results must not be used for non-medical purposes. Benzodiazepine Screen, Urine Presumptive Positive(A) Negative 09/20/2024 10:22 AM EST [facility] Comment: Detection limit of 200 ng/mL of Nordiazepam. Drug results are to be used only for medical purposes. ??Unconfirmed screening results must not be used for non-medical purposes. Buprenorphine Screen, Urine Negative Negative 09/20/2024 10:22 AM [facility] Comment: Detection limit of 10 ng/mL of norbuprenorphine. Drug results are to be used only for medical purposes. ??Unconfirmed screening results must not be used for non-medical purposes. Cocaine Metabolite Screen, Urine Negative Negative 09/20/2024 10:22 AM [facility] Comment: Detection limit of 300 ng/mL of Benzoylecgonine. Drug results are to be used only for medical purposes. ??Unconfirmed screening results must not be used for non-medical purposes. Marijuana Screen, Urine Negative Negative 09/20/2024 10:22 AM [facility] Comment: Detection limit of 50 ng/mL of 56-Via-axlka-2-TBQ-6-carboxylic acid. Drug results are to be used only for medical purposes. ??Unconfirmed screening results must not be used for non-medical purposes. Methadone Metabolite Screen, Urine Negative Negative 09/20/2024 10:22 AM [facility] Comment: Detection limit of 300 ng/mL of Methadone. Drug results are to be used only for medical purposes. ??Unconfirmed screening results must not be used for non-medical purposes. Oxycodone Screen, Urine Negative Negative 09/20/2024 10:22 AM [facility] Comment: Detection limit of 100 ng/mL of Oxycodone. Drug results are to be used only for medical purposes. ??Unconfirmed screening results must not be used for non-medical purposes. Opiate Screen, Urine Negative Negative 09/20/2024 10:22 AM [facility] Comment: Detection limit of 300 ng/mL of Morphine. Drug results are to be used only for medical purposes. ??Unconfirmed screening results must not be used for non-medical purposes. Fentanyl Screen, Urine Negative Negative 09/20/2024 10:22 AM EST [facility] Comment: Detection limit of 5 ng/mL of norfentanyl. Drug results are to be used only for medical purposes. ??Unconfirmed screening results must not be used for non-medical purposes. Urine Urine specimen collection, clean catch / Unknown Non-Blood Collection / Unknown 09/20/2024 9:50 AM EST 09/20/2024 9:50 AM EST us Ashley Scales MD LAB URINE ORDERABLES Breonna ku Result [facility] [address] [place] [address], * (ABNORMAL) Comprehensive Metabolic Panel (09/20/2024 9:16 AM EST) NA 140 135 - 145 mmol/L 09/20/2024 9:54 AM EST [facility] K 4.0 3.5 - 5.3 mmol/L 09/20/2024 9:54 AM EST [facility] Cl 104 98 - 107 mmol/L 09/20/2024 9:54 AM EST [facility] CO2 25 22 - 32 mmol/L 09/20/2024 9:54 AM EST [facility] Anion Gap 11 5 - 15 09/20/2024 9:54 AM EST [facility] Glucose 134(H) 65 - 99 mg/dL 09/20/2024 9:54 AM EST [facility] Creatinine 0.75 0.50 - 1.20 mg/dL 09/20/2024 9:54 AM EST [facility] Calcium 9.5 8.6 - 10.5 mg/dL 09/20/2024 9:54 AM EST [facility] Total Protein 7.2 6.0 - [...] - 4.2 g/dL 09/20/2024 9:54 AM EST [facility] A/G Ratio 1.3(L) 1.5 - 3.0 09/20/2024 9:54 AM EST [facility] Blood Structure of peripheral vein / Unknown Venipuncture / Unknown 09/20/2024 9:16 AM EST 09/20/2024 9:22 AM EST us Ashley Scales MD LAB BLOOD ORDERABLES Breonna l Result [facility] [address] [place] [address], [place] * (ABNORMAL) CBC Auto Differential (09/20/2024 9:16 AM EST) WBC 6.6 3.8 - 10.8 10*3/uL 09/20/2024 [...] 0.0 /100 WBCs 09/20/2024 9:25 AM EST [facility] nRBC # <0.01 <0.01 10*3/uL 09/20/2024 9:25 AM EST [facility] Blood Structure of peripheral vein / Unknown Venipuncture / Unknown 09/20/2024 9:16 AM EST 09/20/2024 9:22 AM EST us Ashley Scales MD LAB BLOOD ORDERABLES Breonna l Result [facility] [address] [place] [id number], * (ABNORMAL) [place] Level (09/20/2024 9:16 AM EST) [place] <0.1(L) 0.6 - 1.2 mmol/L 09/20/2024 10:07 AM EST [facility] Blood Structure of peripheral vein / Unknown Venipuncture / Unknown 09/20/2024 9:16 AM EST 09/20/2024 9:22 AM EST us Dayna Chao MD LAB BLOOD ORDERABLES Breonna l Result [facility] [address] [place] [id number], documented in this encounter Visit Diagnoses Diagnosis Maddy (HCC)- Primary Bipolar I disorder, single manic episode, unspecified documented in this encounter Administered Medications Inactive Administered Medications - up to 3 most recent administrations Medication Order MAR Action Action Date Dose Rate Site acetaminophen (TYLENOL) tablet 975 mg 975 mg, oral, Once, On Thu09/19/24 at 0955, 1 dose, Patient may have acetaminophen for Pain/Headache/Fever >38C. Do not administer if patient has received Acetaminophen (Tylenol) within the past 4 hours. Max dose 975mg Given 09/19/2024 9:55 AM EST 975 mg acetaminophen (TYLENOL) tablet 975 mg 975 mg, oral, Once, On Thu09/19/24 at 1900, 1 dose, Patient may have acetaminophen for Pain/Headache/Fever >38C. Do not administer if patient has received Acetaminophen (Tylenol) within the past 4 hours. Max dose 975mg Given 09/19/2024 7:00 PM EST 975 mg aspirin chewable tablet 81 mg 81 mg, oral, Once, On Thu09/19/24 at 2230, 1 dose Given 09/19/2024 10:47 PM EST 81 mg aspirin chewable tablet 81 mg 81 mg, oral, Daily, First dose on Thu09/20/24 at 0900, Until Discontinued Given 09/20/2024 8:55 AM EST 81 mg benzocaine-menthoL (CEPACOL) lozenge 1 lozenge 1 lozenge, mucous membrane, Every 2 hour PRN, sore throat, Starting on Thu09/20/24 at 0818, Until Thu09/20/24 at 1714 Given 09/20/2024 8:55 AM EST 1 lozenge cephalexin (KEFLEX) capsule 500 mg 500 mg, oral, Every 6 hours scheduled, First dose on Thu09/19/24 at 1955, 20 doses, Last dose on Thu09/24/24 at 1200, Reason for Therapy: Bacterial Infection Suspected, Indication: Skin or Soft Tissue infection Given 09/20/2024 12:45 PM EST 500 mg Given 09/20/2024 5:47 AM EST 500 mg Given 09/20/2024 12:52 AM EST 500 mg escitalopram (LEXAPRO) tablet 10 mg 10 mg, oral, Daily, First dose on Thu09/20/24 at 0900, Until Discontinued Given 09/20/2024 8:56 AM EST 10 mg ferrous sulfate EC tablet 325 mg 325 mg, oral, Daily, First dose on Thu09/20/24 at 0900, Until Discontinued, Do not chew or crush. Administer with water or juice between meals for maximum absorption. May administer with food if GI upset occurs; do not administer with milk or milk products. Given 09/20/2024 8:56 AM EST 325 mg hydrOXYzine HCL (ATARAX) tablet 50 mg 50 mg, oral, 3 times daily PRN, agitation, anxiety, Starting on Thu09/19/24 at 2221, Until Thu09/20/24 at 1714 labetaloL (NORMODYNE) tablet 200 mg 200 mg, oral, Every 12 hours scheduled, First dose on Thu09/19/24 at 2230, Until Discontinued, Hold for SBP less than 100 mmHg or HR less than 50 bpm. Given 09/20/2024 8:55 AM EST 200 mg lithium ER (LITHOBID) tablet 600 mg 600 mg, oral, Nightly, First dose on Thu09/19/24 at 2230, Until Discontinued, Do not crush. LORazepam (ATIVAN) tablet 0.5 mg 0.5 mg, oral, 2 times daily PRN, anxiety, Starting on Thu09/19/24 at 2222, Until Thu09/20/24 at 1714 Given 09/20/2024 5:48 AM EST 0.5 mg LORazepam (ATIVAN) tablet 1 mg 1 mg, oral, Once, On Thu09/19/24 at 1955, 1 dose Given 09/19/2024 8:05 PM EST 1 mg midazolam (VERSED) 5 mg/mL injection Pyxis Override Pull Starting on Thu09/19/24 at 0536, 1 dose, Until Thu09/19/24 at 0540, Created by cabinet override midazolam (VERSED) injection 4 mg 4 mg, intramuscular, Once, On Thu09/19/24 at 0540, 1 dose Given 09/19/2024 5:40 AM EST 4 mg Left Deltoid NIFEdipine XL (PROCARDIA XL) tablet 90 mg 90 mg, oral, Daily, First dose on Thu09/20/24 at 0900, Until Discontinued, Do not crush. Given 09/20/2024 8:56 AM EST 90 mg OLANZapine (ZyPREXA) tablet 7.5 mg 7.5 mg, oral, Nightly, First dose on Thu09/19/24 at 2230, Until Discontinued prazosin (MINIPRESS) capsule 2 mg 2 mg, oral, 2 times daily, First dose on Thu09/20/24 at 0900, Until Discontinued Given 09/20/2024 8:55 AM EST 2 mg QUEtiapine (SEROquel) tablet 300 mg 300 mg, oral, Nightly, First dose on Thu09/19/24 at 2230, Until Discontinued Given 09/19/2024 10:47 PM EST 300 mg documented in this encounter Active and Recently Administered Medications Times are shown in EST. Scheduled Medication Order 09/18/2024 09/19/2024 09/20/2024 acetaminophen (TYLENOL) tablet 975 mg (COMPLETED) 975 mg, oral, Once, On Thu09/19/24 at 0955, 1 dose, Patient may have acetaminophen for Pain/Headache/Fever >38C. Do not administer if patient has received Acetaminophen (Tylenol) within the past 4 hours. Max dose 975mg 0955 (Given - Provider: Beatriz Salmeron RN) acetaminophen (TYLENOL) tablet 975 mg (COMPLETED) 975 mg, oral, Once, On Thu09/19/24 at 1900, 1 dose, Patient may have acetaminophen for Pain/Headache/Fever >38C. Do not administer if patient has received Acetaminophen (Tylenol) within the past 4 hours. Max dose 975mg 1900 (Given - Provider: Beatriz Samleron RN) aspirin chewable tablet 81 mg (COMPLETED) 81 mg, oral, Once, On Thu09/19/24 at 2230, 1 dose 2247 (Given - Provider: Carolyn Quintana RN) aspirin chewable tablet 81 mg 81 mg, oral, Daily, First dose on Thu09/20/24 at 0900, Until Discontinued 0855 (Given - Provid er: Leni Terry RN) cephalexin (KEFLEX) capsule 500 mg 500 mg, oral, Every 6 hours scheduled, First dose on Thu09/19/24 at 1955, 20 doses, Last dose on Thu09/24/24 at 1200, Reason for Therapy: Bacterial Infection Suspected, Indication: Skin or Soft Tissue infection 2005 (Given - Provider: Carolyn Quintana RN) 005 (Given - Provider: Carolyn Quintana RN)0547 (Given - Provider: Carolyn Quintana RN)1245 (Given - Provider: Leni Terry RN) escitalopram (LEXAPRO) tablet 10 mg 10 mg, oral, Daily, First dose on Thu09/20/24 at 0900, Until Discontinued 0856 (Given - Provid er: Leni Terry RN) ferrous sulfate EC tablet 325 mg 325 mg, oral, Daily, First dose on Thu09/20/24 at 0900, Until Discontinued, Do not chew or crush. Administer with water or juice between meals for maximum absorption. May administer with food if GI upset occurs; do not administer with milk or milk products. 0856 (Given - Provid er: Leni Terry RN) labetaloL (NORMODYNE) tablet 200 mg 200 mg, oral, Every 12 hours scheduled, First dose on Thu09/19/24 at 2230, Until Discontinued, Hold for SBP less than 100 mmHg or HR less than 50 bpm. 2229 (Not Given - Provider: Carolyn Quintana RN - Reason: Patient/family refused) 0855 (Given - Provider: Leni Terry RN) lithium ER (LITHOBID) tablet 600 mg 600 mg, oral, Nightly, First dose on Thu09/19/24 at 2230, Until Discontinued, Do not crush. 2246 (Not Given - Provider: Carolyn Quintana RN - Reason: Patient/family refused) LORazepam (ATIVAN) tablet 1 mg (COMPLETED) 1 mg, oral, Once, On Thu09/19/24 at 1955, 1 dose 2004 (Given - Provider: Carolyn Quintana RN) midazolam (VERSED) injection 4 mg (COMPLETED) 4 mg, intramuscular, Once, On Thu09/19/24 at 0540, 1 dose 0540 (Given - Provider: Odalys Thompson RN) NIFEdipine XL (PROCARDIA XL) tablet 90 mg 90 mg, oral, Daily, First dose on Thu09/20/24 at 0900, Until Discontinued, Do not crush. 0856 (Given - Provid er: Leni Terry RN) OLANZapine (ZyPREXA) tablet 7.5 mg 7.5 mg, oral, Nightly, First dose on Thu09/19/24 at 2230, Until Discontinued 2229 (Not Given - Provider: Carolyn Quintana RN - Reason: Patient/family refused) prazosin (MINIPRESS) capsule 2 mg 2 mg, oral, 2 times daily, First dose on Thu09/20/24 at 0900, Until Discontinued 854 (Given - Provid er: Leni Terry RN) QUEtiapine (SEROquel) tablet 300 mg 300 mg, oral, Nightly, First dose on Thu09/19/24 at 2230, Until Discontinued 2247 (Given - Provider: Carolyn Quintana RN) PRN Medication Order 09/18/2024 09/19/2024 09/20/2024 benzocaine-menthoL (CEPACOL) lozenge 1 lozenge 1 lozenge, mucous membrane, Every 2 hour PRN, sore throat, Starting on Thu09/20/24 at 0818, Until Thu09/20/24 at 1714 0855 (Given - Provid er: Leni Terry RN) hydrOXYzine HCL (ATARAX) tablet 50 mg 50 mg, oral, 3 times daily PRN, agitation, anxiety, Starting on Thu09/19/24 at 2221, Until Thu09/20/24 at 1714 LORazepam (ATIVAN) tablet 0.5 mg 0.5 mg, oral, 2 times daily PRN, anxiety, Starting on Thu09/19/24 at 2222, Until Thu09/20/24 at 1714 0548 (Given - Provid er: Carolyn Quintana RN) documented in this encounter Care Teams [employer] T[employer] 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
--- OUTSIDE RECORDS SUMMARY | 2024-09-20 20:23 | XMS_ITS | Referral Summary ---
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 Role Phone Stefanie Marques MD Primary Care Provider [phone] Encounters Date Type Department Care Team Description 09/19/2024 4:31 AM EST - 09/20/2024 3:14 PM EST Emergency [facility] Emergency Department [address] [place] [address] Bruce Chester MD Lerner, Joshua C., MD Edwards, Jennifer L., MD Lowe, Patrick P., MD Chapman, Justin L., MD Williams, Maurine J., MD Maddy (HCC) (Primary Dx) Discharge Disposition: Short Term/Acute Care [facility] (02) 09/09/2024 11:10 AM EST - 09/10/2024 1:23 AM EST Emergency [facility] Emergency Department [address] [place] [address] Ashley Scales MD Costigan, Amy D, MD Lowe, Patrick P., MD Maddy (HCC) (Primary Dx) Discharge Disposition: Psychiatric Hospital (INPT Psych facility/unit) (65) 08/25/2024 7:59 PM EST - 08/26/2024 10:22 AM EST Emergency [facility] Emergency Department [address] [place] [address] Da Hawk MD McQuaide, Brian L., MD Lowe, Gera Sesay MD 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 10/09/19 23 Active docusate sodium (COLACE) 100 mg capsule Take 1 capsule (100 mg total) by mouth 2 times a day. 10/08/19 23 Active labetaloL (NORMODYNE) 200 mg tablet Take 1 tablet (200 mg total) by mouth every 12 hours. 60 tablet 10/08/19 23 025 Active Additional Information Patient taking differently:200 mg oral2 times daily, Reported on 09/09/2024 senna (SENOKOT) 8.6 mg tablet Take 2 tablets (17.2 mg total) by mouth nightly. 10/08/19 23 Active fish oil 340-1,000 mg capsule Take [...] Take 300 mg by mouth nightly. 09/08/19 25 Active lithium ER (Lithobid) 300 mg tablet [...] 2 times a day. 20 tablet 01/20/20 24 025 Discontinued (Therapy Completed or No Longer [...] risk for polypharmacy 10/04/2022 Borderline personality disorder ([facility]) 2019 Bipolar disorder 09/22/2019 Posttraumatic stress disorder [...] Cellulitis of right breast 09/25/2016 1 08/31/2022 Social History Tobacco Use Types Packs/Day Years [...] 8:30 AM EDT Office Visit [facility] [address] [facility] [address] [place] [address] Jose Haskins, OD [address] [place] [address] Procedures * Due to [place] state law, this organization might not be [...] to Health Maintenance Results * Due to [place] state law, this organization might not be sharing negative HIV tests. * (ABNORMAL) Drugs of Abuse Screen, Urine (09/20/2024 9:50 AM EST) Pathologist [facility] Amphetamine Screen, Urine Negative Negative 09/20/2024 10:22 AM EST POINT [address] [facility] [facility] Comment: Detection limit of 1000 ng/mL of d-Methamphetamine. Drug results are to be used only for medical purposes. ??Unconfirmed screening results must not be used for non-medical purposes. Barbiturate Screen, Urine Negative Negative 09/20/2024 10:22 AM EST [facility] [address] [employer] [facility] Comment: Detection limit of 200 ng/mL of Secobarbital. Drug results are to be used only for medical purposes. ??Unconfirmed screening results must not be used for non-medical purposes. Benzodiazepine Screen, Urine Presumptive Positive(A) Negative 09/20/2024 10:22 AM EST [facility] [address] [employer] [facility] Comment: Detection limit of 200 ng/mL of Nordiazepam. Drug results are to be used only for medical purposes. ??Unconfirmed screening results must not be used for non-medical purposes. Buprenorphine Screen, Urine Negative Negative 09/20/2024 10:22 AM EST [facility] [address] [employer] [facility] Comment: Detection limit of 10 ng/mL of norbuprenorphine. Drug results are to be used only for medical purposes. ??Unconfirmed screening results must not be used for non-medical purposes. Cocaine Metabolite Screen, Urine Negative Negative 09/20/2024 10:22 AM [facility] Comment: Detection limit of 300 ng/mL of Benzoylecgonine. Drug results are to be used only for medical purposes. ??Unconfirmed screening results must not be used for non-medical purposes. Marijuana Screen, Urine Negative Negative 09/20/2024 10:22 AM [facility] Comment: Detection limit of 50 ng/mL of 50-Hui-hyzvx-2-SNG-3-carboxylic acid. Drug results are to be used only for medical purposes. ??Unconfirmed screening results must not be used for non-medical purposes. Methadone Metabolite Screen, Urine Negative Negative 09/20/2024 10:22 AM [facility] Comment: Detection limit of 300 ng/mL of Methadone. Drug results are to be used only for medical purposes. ??Unconfirmed screening results must not be used for non-medical purposes. Oxycodone Screen, Urine Negative Negative 09/20/2024 10:22 AM [facility] Comment: Detection limit of 100 ng/mL of Oxycodone. Drug results are to be used only for medical purposes. ??Unconfirmed screening results must not be used for non-medical purposes. Opiate Screen, Urine Negative Negative 09/20/2024 10:22 AM [facility] Comment: Detection limit of 300 ng/mL of Morphine. Drug results are to be used only for medical purposes. ??Unconfirmed screening results must not be used for non-medical purposes. Fentanyl Screen, Urine Negative Negative 09/20/2024 10:22 AM [facility] Comment: Detection limit of 5 ng/mL of norfentanyl. Drug results are to be used only for medical purposes. ??Unconfirmed screening results must not be used for non-medical purposes. Urine Urine specimen collection, clean catch / Unknown Non-Blood Collection / Unknown 09/20/2024 9:50 AM EST 09/20/2024 9:50 AM EST us Ashley Scales MD LAB URINE ORDERABLES Breonna ku Result [facility] [address] [place] [address], [place] * (ABNORMAL) CBC Auto Differential (09/20/2024 9:16 AM EST) Only the most recent of2 resultswithin the time period is included. [facility] WBC 6.6 3.8 - 10.8 10*3/uL 09/20/2024 [...] 0.0 /100 WBCs 09/20/2024 9:25 AM EST [facility] nRBC # <0.01 <0.01 10*3/uL 09/20/2024 9:25 AM EST [facility] Blood Structure of peripheral vein / Unknown Venipuncture / Unknown 09/20/2024 9:16 AM EST 09/20/2024 9:22 AM EST us Ashley Scales MD LAB BLOOD ORDERABLES Breonna l Result [facility] [address] [place] [id number], [place] * (ABNORMAL) [place] Level (09/20/2024 9:16 AM EST) [place] <0.1(L) 0.6 - 1.2 mmol/L 09/20/2024 10:07 AM EST [facility] Blood Structure of peripheral vein / Unknown Venipuncture / Unknown 09/20/2024 9:16 AM EST 09/20/2024 9:22 AM EST us Dayna Chao MD LAB BLOOD ORDERABLES Breonna l Result [facility] [address] [place] [address], [place] * (ABNORMAL) Comprehensive Metabolic Panel (09/20/2024 9:16 AM EST) NA 140 135 - 145 mmol/L 09/20/2024 9:54 AM EST [facility] K 4.0 3.5 - 5.3 mmol/L 09/20/2024 9:54 AM EST [facility] Cl 104 98 - 107 mmol/L [...] - 4.2 g/dL 09/20/2024 9:54 AM EST [facility] A/G Ratio 1.3(L) 1.5 - 3.0 09/20/2024 9:54 AM EST [facility] Blood Structure of peripheral vein / Unknown Venipuncture / Unknown 09/20/2024 9:16 AM EST 09/20/2024 9:22 AM EST us Ashley Scales MD LAB BLOOD ORDERABLES Breonna ku Result [facility] [address] [place] [address], * (ABNORMAL) NT-proBNP (09/09/2024 4:51 PM EST) Pro-B-Type Natriuretic Peptide 365(H) <300 pg/mL 09/09/2024 5:28 PM EST [facility] Comment: Patient Age:? Congestive Heart [...] MD LAB BLOOD ORDERABLES Breonna l Result [facility] [address] [place] [address], * (ABNORMAL) BMP - Basic Metabolic Panel [...] - 1.20 mg/dL 09/09/2024 5:25 PM EST [facility] Glucose 96 65 - 99 mg/dL 09/09/2024 5:25 PM EST [facility] Calcium 9.6 8.6 - 10.5 mg/dL 09/09/2024 5:25 PM EST [facility] Anion Gap 16(H) 5 - 15 09/09/2024 5:25 PM EST [facility] eGFR 87 >=60 mL/min/1. 73m2 09/09/2024 5:25 PM EST [facility] Comment:The estimated glomer ular filtration rate (eGFR) is calculated using a new formula developed by the NKF-ASN task force to eliminate race-based correction factors. The new formula uses serum/plasma creatinine, age, and gender to determine eGFR. A value below 60mls/min might indicate kidney disease and will be flagged. For additional information, see Schaefer et al, Am J Kidney Dis. 2021;79(2):268- 288, A Unifying Approach for GFR estimation: Recommendations of the NKF-ASN Task Force on Reassessing the Inclusion of Race in Diagnosing Kidney Disease . Blood Structure of peripheral vein / Unknown Venipuncture / Unknown 09/09/2024 4:51 PM EST 09/09/2024 4:51 PM EST us Ashley Scales MD LAB BLOOD ORDERABLES Breonna kings Result [facility] [address] [place] [address], * Rapid COVID-19 for Surveillance - Psych/Admission (08/25/2024 9:36 PM EST) PCR, SARS CoV-2 RNA Not Detected Not Detected [employer] 08/25/2024 10:14 PM EST [facility] Comment:A Not Detected (Nega tive) [...] PM EST 08/25/2024 9:36 PM EST Narrative [facility] - 08/25/2024 10:14 PM EST This test was developed, validated and its performance characteristics determined by [facility]. This test has not been cleared or approved by the U.S. Food and Drug Administration (FDA). FDA Policy for Diagnostic Tests for Coronavirus Disease-2019 during the Public Health Emergency issued October 03, 2019, is followed. us Da Hawk MD LAB BODY FLUIDS AND STOOLS ORDERABLES Final Result [facility] [address] [place] [address], [place] * HEPATITIS C ANTIBODY, CONVERSION (10/02/2011 2:37 PM EDT) Hepatitis C Antibody <0.02 <1.00 IV [facility] Comment: Negative Not infected with HCV, unless recent infection is suspected or other evidence exists to indicate HCV infection. 10/02/2011 2:37 PM EDT 10/02/2011 11:42 PM EDT us Yumiko ENRIQUE LAB HISTORICAL RESULTS Final Result [facility] [address] [place] [address], [place] * Pap (11/11/2001 10:07 AM EDT) Path Procedure VCE ([id number]) 1 ?? Edited by: [id number] BENEDICTO-KATIE [facility] - [facility] Specimen Labeled As: 1 CERVICAL/ENDOCER VICAL CYTO MATERIAL - Edited by: [id number] LB-RE [facility] - [facility] Diagnosis ?GYNE PAP SMEAR ? ADEQUACY: ? Satisfactory but limited by no endocervical ? component ? GENERAL DIAGNOSTIC CATEGORY: ? Within NORMAL limits ?? Edited by: [id number] [facility] - [facility] Gynecologic Clinical Data Specimen source:, CERVICAL/ENDOCER VICAL (1 SLIDE) [facility] - [facility] Gynecologic Clinical Data First date of LMP:, UNK [facility] - [facility] Marker 1 RG,SHIVANI YOUNG [facility] ANATOM[facility] PATHOLOGY - [facility] Marker 2 WNL,Within Normal limits [facility] - [facility] Cc Results To JOURDAN CHAUDHRY [facility] [id number] [facility] - [facility] Signature REPORT SIGNED: SHIVANI YOUNG 11/19/01 [facility] - [facility] Sign Out Audit SHIVANI YOUNG [id number] FINAL NEW SIL[place]IA [id number] [facility] - [facility] Cytology / Unknown 11/11/200 2 10:07 AM EDT 11/17/2001 10:07 AM EDT us Na Bhatt MD LAB PATHOLOGY/CYTOLOGY ORDE PADDY Final Result [facility] [address] [place] [address], from Last 3 Months or Most Recently Relevant to Health Maintenance Insurance [address] [place] [address] [place] Advance Directives Documents on File Type Date Recorded Patient Financial Legal Assistant Expl anation Advance Directive 08/21/2014 12:00 AM Advan ce Care Directives Advance Directive 08/21/2014 12:00 AM Advan ce Care Directives * Full Code (Latest Code Status on File) Date Activated Date Inactivated Comments 10/04/2022 11:17 AM 10/07/2022 5:30 PM * Presumed Full Code Date Activated Date Inactivated Comments 10/04/2022 8:24 AM 10/04/2022 11:17 AM Care Teams 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
--- OUTSIDE RECORDS SUMMARY | 2024-09-20 20:23 | XMS_ITS | Data Portability ---
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 alek Not available 07/11/2024 08:20:31 Plan of Treatment Reminders Order Date Submit Date Provider Last Modified By Organization Details Last Modified Time Details Appointments Follow up 2024 01:00P M AQUILINO SMITH NP Not available Not available Not available [facility] 2024 10:00A M Nir Chang MD Not available Not available Not available Lab hemoglobi n A1C, fingersti ck 2023 024 [email or web address] [id number] In-Office Order, Internal Use Only DO Not Attach Compendium DO Not Attach Compendium, Do Not Delete/merge, [id number] 06/21/2024 11:07:23 HIV 1+2 AB + HIV 1 p24 Ag, qualitati ve immunoass ay, serum 2023 024 [facility] Patient Reg, [address] [place], [address], 04/20/2024 19:58:53 chlamydia trachomat is + neisseria gonorrhoe ae rRNA, QL, YOBANI+probe , urine 2023 024 [facility] Patient Reg, [address], [place], [address], 04/21/2024 11:22:36 HBsAg (hepatiti s B surface Ag), quantitat miguel angel, serum 2023 [facility] Patient Reg, [address] [place], [address], 04/20/2024 19:58:52 HIV 1 2 Ab, panel, rapid IA, serum, plasma or blood 2023 [facility] Patient Reg, [address] [place], [address], 04/23/2024 00:08:22 hepatitis B core Ab, total, serum 2023 [facility] Patient Reg, [address] [place], [address], 04/20/2024 19:58:52 RPR (rapid plasma reagin), serum 2023 [facility] Patient Reg, [address] [place], [address], 04/22/2024 06:11:22 HbA1c (hemoglob in A1c), blood [address] Patient Reg, [address] [place], [address], 07/01/2024 12:12:26 lipid panel, serum 2023 [facility] Patient Reg, [address] [place], [address], 04/20/2024 21:25:09 TSH + free T4, serum 2023 [facility] Patient Reg, [address] [place], [address], 04/20/2024 21:25:10 CMP, serum or plasma 2023 [facility] Patient Reg, [address] [place], [address], 04/20/2024 21:25:09 noninvasi ve colorecta l cancer DNA + occult blood screening , QL, stool 2023 RIO MED[facility] (Cologuard Orders Only), [address], [address], [place], [address], 07/03/2024 10:01:23 hepatitis C virus Ab, serum 2023 [facility] Patient Reg, [address] [place], [address], 04/20/2024 19:58:53 Referral None recorded. Procedures None recorded. Surgeries None recorded. Imaging None recorded. Medication Orders furosemid e 20 mg tablet 2023 [facility] #[id number], [address] [place] [address], [id number], 09/15/2024 12:10:46 Anoro Ellipta 62.5 mcg-25 mcg/actua tion powder for inhalatio n 2023 [facility] #[id number], [address] [place], [place], [id number], 04/20/2024 14:24:34 Patient TargetsNo targets recorded. Patient InstructionsNo instructions recorded. Reason for Referral None Reported. Results Created Date Observation Date Name Description Value Unit Range Abnormal Flag Note LastModifiedBy Organization Detail LastModifiedTime 04/20/2004/20/2024 HEPAT ITIS B SURFA CE ANTIG EN hepatitis B surface antigen NONREA CTIVE nonrea ctive Nonre activ e Hepat itis B Surfa ce Antig en not detec lupe: does not exclu de the possi bilit y of expos ure to or early acute infec tion with HBV. Not Available [facility] [address] [place] [address], [id number] 04/20/2024 19:58:52 04/20/2004/20/2024 HEPAT ITIS B CORE ANTIB UBALDO hepatitis B core antibody NONREA CTIVE nonrea ctive Non-R eacti ve Anti- HBcor e not detec lupe. Not Available [facility] [address] [place] [address], [address] 04/20/2024 19:58:52 04/20/20 24 04/20/2024 HEPAT ITIS C ANTIB UBALDO hepatitis C virus antibody NONREA CTIVE nonrea ctive Nonre activ e/Ant ibodi es to HCV not detec lupe; does not exclu de early acute HCV infec tion Non React miguel angel Antib odies to Hepat itis C virus not detec lupe: does not exclu de early acute infec tion. Not Available [facility] [address] [place] [address], [id number] 04/20/2024 19:58:52 04/20/2004/20/2024 HIV 1 2 AG AND AB, 4TH GEN HIV 1 2 Ag and Ab, 4TH gen NONREA CTIVE nonrea ctive A non-r eacti ve resul t indic ates that HIV-1 (HTLV -III) and HIV-2 antib odies and p24 antig ens have not been found in this patie nt's speci men. A non-r eacti ve resul t, [facility] er, does not precl ude previ ous expos ure or infec tion with HIV-1 and HIV-2 . Not Available [facility] [address] [place] [address], [id number] 04/20/2024 19:58:53 04/20/2004/20/2024 COMPR EHENS MIGUEL ANGEL MET. PANEL sodium 142 mmol/ L 136-14 5 normal Not Available [facility] [address] [place] [address], [address] 04/20/2024 21:25:09 04/20/2004/20/2024 COMPR EHENS MIGUEL ANGEL MET. PANEL potassium 3.88 mmol/ L 3.5-5. 1 normal Not Available [facility] [address] [place] [address], [address] 04/20/2024 21:25:09 04/20/20 24 04/20/2024 COMPR EHENS MIGUEL ANGEL MET. PANEL chloride 101 mmol/ L 98-107 normal Not Available [facility] [address] [place] [address], [address] 04/20/2024 21:25:09 04/20/20 24 04/20/2024 COMPR EHENS MIGUEL ANGEL MET. PANEL carbon dioxide 28 mmol/ L 22-29 normal Not Available [facility] [address] [place], [address] 04/20/2024 21:25:09 04/20/20 24 04/20/2024 COMPR EHENS MIGUEL ANGEL MET. PANEL anion gap 17 mmol/ L 10-20 normal Not Available [facility] [address] [place], [address] 04/20/2024 21:25:09 04/20/20 24 04/20/2024 COMPR EHENS MIGUEL ANGEL MET. PANEL blood urea nitrogen 7 mg/dL 6-20 normal Not Available [facility] Department [address] [place], [address] 04/20/2024 21:25:09 04/20/20 24 04/20/2024 COMPR EHENS MIGUEL ANGEL MET. PANEL creatinine 0.69 mg/dL 0.51-0 .95 normal Not Available [facility] [address] [place], [address] 04/20/2024 21:25:09 04/20/20 24 04/20/2024 COMPR EHENS MIGUEL ANGEL MET. PANEL estimated glomerular filt rate 109 GFR Value : mL/mi n/1.7 3 squar e meter s Calcu latio n: CKD-E PI Creat inine Equat ion (2020 ) Chron ic Kidne y Disea se is defin ed as eithe r of the follo wing prese nt for >= 3 month s: - GFR less than 60 mL/mi n/1.7 3 squar e meter s. - Micro album in:Ur . Creat inine Ratio >= 30 mg/g or other marke rs of kidne y damag e Kidne y failu re is less than 15 mL/mi n/1.7 3 squar e meter s This test is not perfo rmed in patie nts under the age of 18. Not Available [facility] [address] [place], [address] 04/20/2024 21:25:09 04/20/20 24 04/20/2024 COMPR EHENS MIGUEL ANGEL MET. PANEL glucose 140 mg/dL 70-106 high Not Available [facility] [address] [place], [address] 04/20/2024 21:25:09 04/20/2004/20/2024 COMPR EHENS MIGUEL ANGEL MET. PANEL calcium 9.2 mg/dL 8.6-10 .3 normal Not Available [facility] [address] [place] [address], [address] 04/20/2024 21:25:09 04/20/20 24 04/20/2024 COMPR EHENS MIGUEL ANGEL MET. PANEL bilirubin total 0.3 mg/dL 0.2-1. 2 normal Not Available [facility] [address] [place], [address] 04/20/2024 21:25:04/20/2004/20/2024 COMPR EHENS MIGUEL ANGEL MET. PANEL aspartate amino transferase 17 U/L 5-32 normal Not Available [facility] Department [address] [place], [address] 04/20/2024 21:25:09 04/20/20 24 04/20/2024 COMPR EHENS MIGUEL ANGEL MET. PANEL alanine aminotransfe rase 14 U/L 5-33 normal Not Available [facility] Department [address] [place], [address] 04/20/2024 21:25:09 04/20/20 24 04/20/2024 COMPR EHENS MIGUEL ANGEL MET. PANEL total protein 6.9 g/dL 6.4-8. 3 normal Not Available [facility] [address] [place], [address] 04/20/2024 21:25:09 04/20/20 24 04/20/2024 COMPR EHENS MIGUEL ANGEL MET. PANEL albumin level 3.8 g/dL 3.5-5. 2 normal Not Available [facility] [address] [place], [address] 04/20/2024 21:25:09 04/20/20 24 04/20/2024 COMPR EHENS MIGUEL ANGEL MET. PANEL globulin 3.1 gm/dL 2.0-3. 5 normal Not Available [facility] [address] [place], [address] 04/20/2024 21:25:09 04/20/20 24 04/20/2024 COMPR EHENS MIGUEL ANGEL MET. PANEL albumin globulin ratio 1.2 % 1.1-2. 5 normal Not Available [facility] [address] [place], [address] 04/20/2024 21:25:04/20/20 24 04/20/2024 COMPR EHENS MIGUEL ANGEL MET. PANEL alkaline phosphatase 93 U/L 35-104 normal Not Available [facility] Department [address] [place], [address] 04/20/2024 21:25:04/20/20 24 04/20/2024 LIPID PANEL WITH REFLE X triglyceride s 359 mg/dL 30-150 high Refer ence Range s: <150 mg/dl Matilda l 150-1 99 mg/dl Borde rline High 200-4 99 mg/dl High >500 mg/dl Very High Not Available [facility] [address] [place] [address], [address] 04/20/2024 21:25:04/20/20 24 04/20/2024 LIPID PANEL WITH REFLE X cholesterol 172 mg/dL 100-20 0 normal Not Available [facility] [address] [place], [address] 04/20/2024 21:25:04/20/20 24 04/20/2024 LIPID PANEL WITH REFLE X LDL cholesterol direct TNP mg/dL 0-100 Not Available [facility] Department [address] [place], [address] 04/20/2024 21:25:09 04/20/20 24 04/20/2024 LIPID PANEL WITH REFLE X LDL cholesterol calculated 66.0 mg/dL 0-100 normal Natio nal Mariah stero l Educa tion Progr am sugge sts the follo wing refer ence range : Optim al <100 mg/dL Near optim al/ab ove optim al 100-1 29 mg/dL Borde rline high 130-1 59 mg/dL High 160-1 89 mg/dL Very high >190 mg/dL Not Available [facility] [address] [place], [address] 04/20/2024 21:25:09 04/20/20 24 04/20/2024 LIPID PANEL WITH REFLE X HDL cholesterol 34.7 mg/dL 40-60 low Major risk facto r for CHD: <40 mg/dL Negat miguel angel risk facto r for CHD: >=60 mg/dL Not Available [facility] [address] [place] [address], [address] 04/20/2024 21:25:09 04/20/20 24 04/20/2024 LIPID PANEL WITH REFLE X chol HDL ratio 4.96 Risk CHOL/ HDL CHOL/ HDL Ratio Male Femal e 1/2 AVERA GE 3.43 3.27 AVERA GE 4.97 4.44 2 X AVERA GE 9.55 7.05 3 X AVERA GE 23.39 11.04 Not Available [facility] [address] [place] [address], [address] 04/20/2024 21:25:09 04/20/20 24 04/20/2024 TSH REFLE X FREE T4 free T4 (free thyroxine) TNP NG/dL 0.9-1. 7 Not Available [facility] [address] [place] [address], [address] 04/20/2024 21:25:10 04/20/20 24 04/20/2024 TSH REFLE X FREE T4 TSH reflex free T4 4.15 uIU/m L 0.27-4 .20 normal Not Available [facility] [address] [place] [address], [address] 04/20/2024 21:25:10 04/20/20 24 04/21/2024 CHLAM YDIA/ GC (NAAT ) URINE chlamydia (naat) urine NEGATI VE negati ve Not Available [facility] [address] [place] [address], [address] 04/21/2024 11:22:36 04/20/20 24 04/21/2024 CHLAM YDIA/ GC (NAAT ) URINE N. gonorrhoeae (naat) urine NEGATI VE negati ve Not Available [facility] [address] [place] [address], [address] 04/21/2024 11:22:36 04/20/20 24 04/22/2024 RPR WITH REFLE X RPR screen NON REACTI VE non reacti ve Perfo rmed at: 01 - [facility] [address], [place] [address] Lab Direc tor: Sheridan Villalobos MD, Phone : [phone] Not Available [facility] [address] [place], [address] 04/22/2024 06:11:22 04/20/20 24 04/23/2024 HIV-1 /HIV- 2 QUALI TATIV E RNA HIV-1 RNA NON REACTI VE non reacti ve Not Available [facility] [address] [place] [address], [address] 04/23/2024 00:08:22 04/20/20 24 04/23/2024 HIV-1 /HIV- 2 QUALI TATIV E RNA HIV-2 RNA NON REACTI VE non reacti ve Perfo rmed at: 01 - [facility] [address] [address] [place] [address] [place] [address] Lab Direc tor: Basia virk MD, Phone : [phone] Not Available [facility] [address] [place] [address], [id number] 04/23/2024 00:08:22 06/21/20 24 06/21/2024 hemog lobin A1C, finge rstic k Hemoglobin A1C Result- Ref Range (4.0 - 5.7) 5.1 Not Available In-O ffice Order Internal Use Only DO Not Attach Compendium DO Not Attach Compendium, Do Not Delete/merge, [id number] 06/21/2024 10:27:15 06/26/20 24 06/26/2024 COLOG UARD cologuard result reportable NEGATI VE negati ve normal NEGAT MIGUEL ANGEL TEST RESUL T. A negat miguel angel Colog uard resul t indic ates a low likel ihood that a color ectal cance r (CRC) or advan hannah adeno ma (mela omato us polyp s with more advan hannah pre-m align ant featu res) is prese nt. The chanc e that a perso n with a negat miguel angel Colog uard test has a color ectal cance r is less than 1 in 1500 (nega tive predi ctive value >99.9 %) or has an advan hannah adeno ma is less than 5.3% (nega tive predi ctive value 94.7% ). These data are based on a prosp ectiv e cross -sect ional study of 10,00 0 indiv idual s at sigel ge risk for color ectal cance r who were scree shin with both Colog uard and colon oscop y. (Galindo Jaimes al, N Engl J Med 2014; 370(1 4):12 86-12 97) The matilda l value (refe rence range ) for this assay is negat miguel angel. COLOG UARD RE-SC REENI NG RECOM MENDA TION: Perio dic color ectal cance r scree all is an impor tant part of preve ntive healt hcare for asymp tomat ic indiv idual s at sigel ge risk for color ectal cance r. Follo wing a negat miguel angel Colog uard resul t, the Ameri can Cance r Socie ty and U.S. Multi -Soci ety Task Force scree all guide lines recom mend a Colog uard re-sc reeni ng inter kristie of 3 years . Refer ences : Ameri can Cance r Socie ty Guide line for Color ectal Cance r Scree all: https ://ww w.can cer.o rg/ca ncer/ colon -rect al-ca ncer/ detec tion- diagn osis- stagi ng/ac s-rec ommen datio ns.ht ml.; Neri GUTHRIE, Nataliia rick CR, Raquel GandhiK, Color ectal Cance r Scree all: Recom menda tions for Physi cians and Patie nts from the U.S. Multi -Soci ety Task Force on Color ectal Cance r Scree all , Am J Gastr oente rolog y 2017; 112:1 016-1 030. TEST DESCR IPTIO N: [place] site algor ithmi c amy sis of stool DNA-b iophilipp kers with hemog lobin immun oassa y. Quant itati ve value s of indiv idual bioma rkers are not repor table and are not assoc iated with indiv idual bioma rker resul t refer ence range s. Colog uard is inten ded for color ectal cance r scree all of adult s of eithe r sex, 45 years or older , who are at [facility] for color ectal cance r (CRC) . Colog uard has been appro santos for use by the U.S. FDA. The perfo rmanc e of Colog uard was estab lishe d in a cross secti onal study of [facility] adult s aged 50-84 . Colog uard perfo rmanc e in patie nts ages 45 to 49 years was estim ated by alba-g desiree amy sis of near- age group s. Colon oscop ies perfo rmed for a posit miguel angel resul t may find as the most clini nicole signi marnie t deepti n: color ectal cance r [4.0% ], advan hannah adeno ma (incl uding sessi le balaji lupe polyp s great er than or equal to 1cm diame ter) [20%] or non- advan hannah adeno ma [31%] ; or no color ectal neopl lamar [45%] . These estim ates are deriv ed from a prosp ectiv e cross -sect ional scree all study of 0 indiv idual s at [facility] risk for color ectal cance r who were scree shin with both Colog uard and colon oscop y. (Galindo Lee et al, N Engl J Med 2014; 370(1 4):12 86-12 97.) Colog uard may produ ce a false negat miguel angel or false posit miguel angel resul t (no color ectal cance r or preca ncero us polyp prese nt at colon oscop y follo w up). A negat miguel angel Colog uard test resul t does not guara ntee the absen ce of CRC or advan hannah adeno ma (pre- cance r). The curre nt Colog uard scree all inter kristie is every 3 years . (Amer ican Cance r Socie ty and U.S. Multi -Soci ety Task Force ). Colog uard perfo rmanc e data in a 0 patie nt pivot al study using colon oscop y as the refer ence metho d can be acces sed at the follo wing locat ion: www.e xactl abs.c om/re abel . Addit ional descr iptio n of the Colog uard test proce ss, warni ngs and preca ution s can be found at www.c axel arcos.c om. Not Available [facility] (Cologuard Orders Only) [address], [place], [address], 07/03/2024 10:01:23 07/21/19 25 07/21/2024 MICRO ALBUM IN, RANDO M (W CREAT ) creatinine urine 88.60 mg/dL 28-217 normal Not Available [facility] Department [address] [place] [address], [address] 07/21/2024 19:02:53 07/21/19 25 07/21/2024 MICRO ALBUM IN, RANDO M (W CREAT ) microalbumin urine < 2.0 mg/dL 0-2.9 normal Not Available [facility] Department [address] [place], [address] 07/21/2024 19:02:53 07/21/19 25 07/21/2024 MICRO ALBUM IN, RANDO M (W CREAT ) microalbum/c reatinine ratio ur TNP ug/mg cre 0-29 Not Available [facility] [address] [place], [address] 07/21/2024 19:02:53 07/21/19 25 07/21/2024 B TYPE NATRI URETI C PEPTI DE PRO B type natriuretic peptide pro 108.0 pg/mL 5-300 normal Age-b ased posit miguel angel cut point s Age Group Cut-P oints Inter preta tion (pg/m L) <50 years 450 >450 pg/mL indic ates ADHF is likel y 50-75 years 900 >900 pg/mL indic ates ADHF is likel y >75 years 1800 >1800 pg/mL indic ates ADHF is likel y All ages Resul ts Indet ermin ate. Furth er clini donaldo withi n infor perla n is neede d to deter mine [employer] [facility] if ADHF is prese nt. for age group ----- ----- ----- ----- ----- ----- ----- ----- ----- ----- ----- ----- Negat miguel angel cut-p oint for all ages Age Group Cut-P oint Inter preta tion (pg/m L) All ages 300 <300 pg/mL indic ates ADHF is not likel y Not Available [facility] [address] [place] [address], [address] 07/21/2024 19:22:12 07/21/19 25 07/21/2024 COMPR EHENS MIGUEL ANGEL MET. PANEL sodium 143 mmol/ L 136-14 5 normal Not Available [facility] [address] [place] [address], [address] 07/21/2024 19:25:15 07/21/19 25 07/21/2024 COMPR EHENS MIGUEL ANGEL MET. PANEL potassium 4.00 mmol/ L 3.5-5. 1 normal Not Available [facility] [address] [place] [address], [address] 07/21/2024 19:25:15 07/21/19 25 07/21/2024 COMPR EHENS MIGUEL ANGEL MET. PANEL chloride 103 mmol/ L 98-107 normal Not Available [facility] [address] [place] [address], [address] 07/21/2024 19:25:15 07/21/19 25 07/21/2024 COMPR EHENS MIGUEL ANGEL MET. PANEL carbon dioxide 26 mmol/ L 22-29 normal Not Available [facility] [address] [place] [address], [address] 07/21/2024 19:25:15 07/21/1907/21/2024 COMPR EHENS MIGUEL ANGEL MET. PANEL anion gap 17 mmol/ L 10-20 normal Not Available [facility] [address] [place], [address] 07/21/2024 19:25:15 07/21/1907/21/2024 COMPR EHENS MIGUEL ANGEL MET. PANEL blood urea nitrogen 7 mg/dL 6-20 normal Not Available [facility] Department [address] [place], [address] 07/21/2024 19:25:15 07/21/1907/21/2024 COMPR EHENS MIGUEL ANGEL MET. PANEL creatinine 0.81 mg/dL 0.51-0 .95 normal Not Available [facility] [address] [place], [address] 07/21/2024 19:25:15 07/21/1907/21/2024 COMPR EHENS MIGUEL ANGEL MET. PANEL estimated glomerular filt rate 91 GFR Value : mL/mi n/1.7 3 squar e meter s Calcu latio n: CKD-E PI Creat inine Equat ion (2020 ) Chron ic Kidne y Disea se is defin ed as eithe r of the follo wing prese nt for >= 3 month s: - GFR less than 60 mL/mi n/1.7 3 squar e meter s. - Micro album in:Ur . Creat inine Ratio >= 30 mg/g or other marke rs of kidne y damag e Kidne y failu re is less than 15 mL/mi n/1.7 3 squar e meter s This test is not perfo rmed in patie nts under the age of 18. Not Available [facility] [address] [place], [address] 07/21/2024 19:25:15 07/21/1907/21/2024 COMPR EHENS MIGUEL ANGEL MET. PANEL glucose 101 mg/dL 70-106 normal Not Available [facility] [address] [place], [address] 07/21/2024 19:25:15 07/21/19 25 07/21/2024 COMPR EHENS MIGUEL ANGEL MET. PANEL calcium 9.0 mg/dL 8.6-10 .3 normal Not Available [facility] [address] [place], [address] 07/21/2024 19:25:15 07/21/19 25 07/21/2024 COMPR EHENS MIGUEL ANGEL MET. PANEL bilirubin total 0.4 mg/dL 0.2-1. 2 normal Not Available [facility] [address] [place], [address] 07/21/2024 19:25:15 07/21/1907/21/2024 COMPR EHENS MIGUEL ANGEL MET. PANEL aspartate amino transferase 26 U/L 5-32 normal Not Available [facility] Department [address] [place], [address] 07/21/2024 19:25:15 07/21/1907/21/2024 COMPR EHENS MIGUEL ANGEL MET. PANEL alanine aminotransfe rase 29 U/L 5-33 normal Not Available [facility] Department [address] [place], [address] 07/21/2024 19:25:15 07/21/1907/21/2024 COMPR EHENS MIGUEL ANGEL MET. PANEL total protein 6.8 g/dL 6.4-8. 3 normal Not Available [facility] [address] [place], [address] 07/21/2024 19:25:15 07/21/1907/21/2024 COMPR EHENS MIGUEL ANGEL MET. PANEL albumin level 3.9 g/dL 3.5-5. 2 normal Not Available [facility] [address] [place], [address] 07/21/2024 19:25:15 07/21/19 25 07/21/2024 COMPR EHENS MIGUEL ANGEL MET. PANEL globulin 2.9 gm/dL 2.0-3. 5 normal Not Available [facility] [address] [place], [address] 07/21/2024 19:25:15 07/21/1907/21/2024 COMPR EHENS MIGUEL ANGEL MET. PANEL albumin globulin ratio 1.3 % 1.1-2. 5 normal Not Available [facility] [address] [place] [address], [address] 07/21/2024 19:25:15 07/21/19 25 07/21/2024 COMPR EHENS MIGUEL ANGEL MET. PANEL alkaline phosphatase 100 U/L 35-104 normal Not Available [facility] Department [address] [place], [address] 07/21/2024 19:25:15 07/21/19 25 07/21/2024 TSH REFLE X FREE T4 free T4 (free thyroxine) 1.06 NG/dL 0.9-1. 7 normal Not Available [facility] [address] [place], [address] 07/21/2024 19:25:16 07/21/19 25 07/21/2024 TSH REFLE X FREE T4 TSH reflex free T4 4.30 uIU/m L 0.27-4 .20 high Not Available [facility] [address] [place] [address], [address] 07/21/2024 19:25:16 Result Notes None recorded. Problems Name Problem SNOMED Code Status Onset Date Resolution Date Notes Provider Name and Address Organization Details Recorded Time Nocturnal enuresis 5914501 [facility] Menorrhagi a 501536932 [facility] 14:[facility]:19 Recurrent anxiety 743998856 [facility] 14[facility]:19 Hyperurice ashish 06198842 Active 2016 [facility] 14:20:19 Restrictiv e lung disease 83986638 Active 2016 [facility] 14:20:19 Iron deficiency 27492752 Active 2016 [facility] 14:20:19 Premature menopause 979016481 Active 2016 [facility] 14:20:19 Hypertensi ve disorder 29186742 Active 2017 DARIEN GRAF NP [address] [place] [address] [place], [address], [facility] 2 10:11:39 Obstructiv e sleep apnea syndrome 75188321 Active 2017 severe Muriel Lockwood [place] null, [facility] 2 14:20:19 Morbid obesity 450419900 Active 2018 Muriel Lockwood [place] null, [facility] 2 14:20:19 Schizophre enrico 84484838 Active 2019 Muriel Lockwood MA null, [facility] 2 14:20:19 Borderline personalit y disorder [id number] Active 2019 Muriel Lockwood MA null, [facility] 2 14:20:19 Posttrauma tic stress disorder 72797078 Active 2019 Muriel Lockwood MA null, [facility] 2 14:20:19 Bipolar disorder 03830148 Active 2019 DARIEN GRAF NP [address] [facility] [place], [address], [facility] 2 10:11:39 Gastroesop hageal reflux disease without esophagiti s 798649338 Active 2019 Muriel Lockwood MA null, [facility] 2 14:20:19 Intoleranc e to lactose 862966307 Active 2019 TROY Correia, 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 Continue to monitor tsh yearly.- 201607/21/24 TSH 4.30- Lesia Meeks NP Problem Notes None recorded. Procedures Surgical History Date Name Laterality Status Provider Name and Address Organization Details Recorded Time 08/26/19 24 Date of Last Mammogram completed Muriel De Leon CMA [facility] 08/31/2023 07:31:41 11/26/19 23 Diabetic Routine Foot Care completed HAKAN GOODEN DPM [address] [facility] [place], [address], [facility] 11/26/2022 19:35:59 11/05/19 23 Egd remove lesion snare completed Batsheva Hall [facility] 11/04/2022 12:14:27 09/20/19 22 PHQ-9 Patient Health Questionnaire completed DARIEN GRAF NP [address] [facility] [place], [address], [facility] 09/19/2021 16:25:53 03/11/20 19 PHQ-9 Patient Health Questionnaire completed ALISON Cronin [facility] 03/11/2019 10:24:22 02/25/20 18 PHQ-9 Patient Health Questionnaire completed Maddie Peña CMA [facility] 02/24/2018 13:50:50 02/11/20 17 established patient counseling (15-24 minutes) completed Nir Chang MD [address] [facility] [place], [address], [facility] 02/10/2017 15:36:45 11/18/19 17 gallbaldder removal completed Maddie Peña CMA [facility] 02/24/2018 13:54:07 10/29/19 17 PHQ-9 Patient Health Questionnaire completed Antonina Lombardo MA [facility] 10/28/2016 14:13:04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 52020343 N91.1 [id number] Joan Oliva MD [facility] [address] [place] [address] 01/21/2017 10:42:44 01/30/2017 09:30:41 Postoperative visit 539816992 Z09 Advised patient that it may take a few weeks for diarrhea to improve and she should stay on a low fat diet. Pathology reviewed - cholelithi asis. Advised patient that she may resume normal activity. All questions answered. Will see PRN. [id number] Nir Chang MD [facility] [address] [place] [address], [address] [place] [address] 02/10/2017 14:56:04 02/10/2017 15:33:49 Amenorrhea 88069107 N91.1 [id number] Steph [facility] [address] [address] 04/09/2017 15:50:03 04/09/2017 16:41:54 Flea bites 257616134 W57.XXXA Patient has flea bites of the feet and ankles. She has a rabbit that is currently infected with fleas and whom they are treating with over the counter remedies. Recommende d taking the rabbit to the veterinari an for appropriat e flea infestatio n treatment. Recommende d treating the linens and the house for flea infestatio n. Counseled that she could use Benadryl for treatment of the pruritis, but to use this with caution as it can make her sleepy as can some of her other medication s. [id number] Coral Harding MD [facility] [address] [address] 06/15/2017 14:40:34 06/15/2017 15:23:34 Acute conjunctivitis 12730912 H10.32 Possibly bacterial. Will rx as below. Discussed how to use and red flags to call us with. Thyroid st imulating hormone level above reference range 783033235 R79.89 On labs through [facility]. Will check labs as below. Doubt that a mildly elevated TSH is causing amenorrhea . Based on labs done by Dr. Cross, likely premature menopause. Which is likely her cause of amenorrhea . Influenza vaccine needed 8153104377 106 Z23 Pt presents for influenza vaccinatio n. Patient screened with questions from 6922-4867 Flu protocol. Discussed importance of influenza vaccine due to the patient's risk of contractin g the disease. A handout was offered to enhance understand ing of the effects and side effects of the vaccine. [id number] Coral Harding [facility] [address] [place] [address] 07/30/2017 14:31:12 07/30/2017 15:03:44 Lumbar radiculopathy 875102063 M54.16 Discussed nature of pain w/ pt. Advised that weight loss would significan tly help her symptoms. Advised NSAIDs, home PT, heat/ice. If no improvemen t in 4 weeks, call and will send for formal PT. [id number] Coral Harding MD [facility] [address] [address] 08/25/2017 14:47:36 08/25/2017 15:20:40 Conjunctivitis 2134256 H10.9 Will treat with antibiotic s as below. Encouraged warm compresses for symptomati c relief. Educated pt on proper hand washing to avoid spread to others. Avoid other creams or cosmetics near eyes. Follow-up in 2-3 days if symptoms are not improving, sooner if worsening. Blepharitis 41644889 H01 .9 As above. [id number] Coral Harding MD [facility] [address] [address] 02/08/2018 11:05:18 02/08/2018 12:07:53 Cardiomegaly 9300627 I51.7 Will obtain echo in order to f/u report on cxr of cardiomega ly. Suspect related to BONIFACIO, and HTN see below. Obstructiv e sleep apnea syndrome 54773415 G47.33 Will attempt to get CPAP again from [employer]. Hypertensive disorder 38 186554 I10 BP well controlled at this time. Will continue labetalol, nifedipine [id number] Coral Harding MD [facility] [address] [address] 02/24/2018 13:40:12 02/24/2018 14:48:23 Adult health examination 530728273 Z00.01 Full code status. Encouraged patient to discuss medical decisions with Health Care Proxy. Plan colonoscop y at age 49 unless change in symptoms or family history. Baseline mammogram age 49, unless earlier based on risk factors and discussion with patient. Discussed contracept ion and safe sex. Encouraged aerobic exercise 5x/week Discussed importance of healthy/ba lanced diet. Encouraged high fiber, adequate calcium, minimizing caffeine and alcohol. Administra tion of diphtheria, pertussis, and tetanus vaccine 054543362 Z23 Diarrhea 99158488 R19.7 Will check stool studies. Discussed good hydration, BRAT diet. Discussed yogurt/pro biotics. Follow up in 3-4 days if not improving or sooner if worsening. Morbid obesity 571802371 E66.01 Z68.44 Discussed diet and exercise, medical and surgical options. Discussed weight loss to help with other medical conditions . Will start Saxenda and refer to bariatric. Follow up as scheduled or sooner PRN. [id number] Coral Harding MD [facility] [address] [address] 08/23/2018 10:47:13 08/23/2018 13:17:22 Hypertensive disorder 33009665 I10 BP 138/82 off of prescribed antihypert ensives, supporting ongoing treatment with labetalol and nifedipine . Will refill medication s and check labs as below. Will follow up with patient as scheduled below or sooner PRN patient. Crusted scabies 95545979 5 B86 Diffuse lesions and history of recent scabies exposure support treating with permethrin at this time. Discussed washing all clothes and sheets in hot water. Discussed use of lysol on furniture and vacuuming house. Will treat with permethrin 5% now and then again in 1 week. Encouraged patient to follow up as scheduled or sooner PRN. Morbid obesity 424637507 E66.01 Discussed importance of following a healthy/ba lanced diet with adequate fruits, vegetables and protein and minimizing soda intake. Provided patient with reference for local food pantry to assist with availabili ty of food. Discussed recommenda tion of 30min 5x/week of exercise, discussed various exercises that may be enjoyable for patient today to maximize adherence. [id number] Coral Harding MD [facility] [address] [address] 09/23/2018 11:22:23 09/23/2018 12:31:16 Hypertensive disorder 36225779 I10 On labetalol, nifedipine . Well controlled today, continue. Crusted scabies 52720648 5 B86 Diffuse lesions and history of recent scabies exposure support treating with permethrin at this time. Discussed washing all clothes and sheets in hot water. Discussed use of lysol on furniture and vacuuming house. Will treat with permethrin 5% now and then again in 1 week. Encouraged patient to follow up as scheduled or sooner PRN. Lumbar radiculopathy 128 326525 M54.16 Discussed nature of pain w/ pt. Advised that weight loss would significan tly help her symptoms. Advised NSAIDs, home PT--pt to discuss w/ [facility], heat/ice. If no improvemen t in 4 weeks, call and will send for formal PT. [id number] Coral Harding MD [address] [address] 01/06/2019 13:32:04 01/06/2019 14:29:22 Crusted scabies 306070460 B86 Diffuse lesions and history of recent scabies exposure support treating with permethrin . Discussed washing all clothes and sheets in hot water. Discussed use of lysol on furniture and vacuuming house. Discussed with patient that she should also try benadryl as directed to help prevent itching, shower daily with gentle soap and warm water and apply a thick unscented lotion or cream daily. F/U in the office with no improvemen t in sx, or with any questions/ concerns. Will cont to monitor. Recurrent anxiety 343653 001 F41.9 Will send in RX for sertraline as listed below. Patient instructed to call the office with the correct dose of mirtazapin e and then will send that RX in as well until she is establishe d with psych. [id number] Coral Harding MD [address] [address] 02/24/2019 10:19:22 02/24/2019 10:51:52 Eruption 772885620 R21 Discussed with patient that I do not suspect a current scabies infestatio n. We discussed proper hygeine in detail. Advised that she take a warm shower at least every other day and use a gentle unscented soap. Apply a gentle unscented lotion to skin after showering or more frequently to help alleviate pruritis. Will refer as below for second opinion d/t long standing h/o scabies and pruritis. Tinea capitis 4540443 B3 5.0 Discussed with patient that H&P consistent with tinea capitis, will RX as below. Discussed that all close contacts monitor for similar symptoms as well, especially those that share close living quarters with her. Advised warm shower, use gentle unscented soaps, shampoo, lotions. Advised to call with any new or worsening sx, or INB in 2-3 weeks despite treatment. Will cont to monitor. [id number] NELL Govea[address] [address] 03/11/2019 10:13:26 03/11/2019 11:03:21 Adult health examination 735136749 Z00.00 Patient should discuss medical decisions with Health Care Proxy. Recommende d screenings included colonoscop y screening age 50, earlier based on family history/ri sk factors; annual mammogram age 50, unless earlier based on risk factors and discussion with patient; bone density age 65, unless risk factors for earlier screening; one time screen for hepatitis C if born between 3055-3366 or has risk factors. Reviewed vaccines and current recommenda tions. Basic health topics include aerobic exercise, importance of healthy/ba lanced diet and minimizing caffeine and alcohol. Screening mammography 24 526501 Z12.31 Hypertensive disorder 38 946147 I10 Stable with current meds. Discussed diet and exercise. Follow up in {{3 6*}} months or sooner PRN. Morbid obesity 034582570 E66.01 Z68.42 We have discussed the adverse health consequenc es of obesity today as well the benefits of weight loss. We have focused on both diet and exercise management strategies in our discussion today. Will continue to monitor and assess. [id number] NELL G[address] [address] 03/15/2019 13:32:20 03/15/2019 14:58:50 Hypertensive disorder 23318004 I10 Vitamin D deficiency 347 47911 E55.9 [id number] NELL [address] [address] 09/12/2019 09:51:55 09/12/2019 10:51:19 Hypertensive disorder 05257343 I10 BP elevated. Continue current meds. Discussed low sodium diet. Will recheck BP at nurse visit for PPD read. Influenza vaccine needed 2450928839 106 Z23 Pt presents for influenza vaccinatio n. Patient screened with questions from Flu protocol. Discussed importance of influenza vaccine due to the patient's risk of contractin g the disease. A handout was offered to enhance understand ing of the effects and side effects of the vaccine. Tuberculos is screening 132154169 Z11.1 Chronic back pain 900286 002 M54.9 Will refer to PT and order rolling walker. Follow up as scheduled or sooner PRN. [id number] Coral Harding MD [facility] [address] [place] [address] 09/19/2021 13:45:47 09/19/2021 15:26:48 Adult health examination 611605007 Z00.00 Patient should discuss medical decisions with Health Care Proxy. Recommende d screenings included colonoscop y screening age 50, earlier based on family history/ri sk factors; annual mammogram age 50, unless earlier based on risk factors and discussion with patient; bone density age 65, unless risk factors for earlier screening; one time screen for hepatitis C if born between 9881-7187 or has risk factors. Reviewed vaccines and current recommenda tions. Basic health topics include aerobic exercise, importance of healthy/ba lanced diet and minimizing caffeine and alcohol. Screening for malignant neoplasm of cervix 171245090 Z12.4 Discussed benefits of cervical cancer screening w/ patient. She declines at this time. Understand s we may be missing early neoplasm. She plans to discuss pap under sedation w/ automation technologist. Will continue to monitor. Influenza vaccine needed 8420345080 106 Z23 Pt presents for influenza vaccinatio n. Patient screened with questions from 6664-0588 Flu protocol. Discussed importance of influenza vaccine due to the patient's risk of contractin g the disease. A handout was offered to enhance understand ing of the effects and side effects of the vaccine. Bipolar disorder 4895466 4 F31.9 Pt feels stable at this time on current medication s. Continue f/u with psych. Will cont to monitor. Borderline personality disorder 25104652 F60.3 Pt feels stable at this time on current medication s. Continue f/u with psych. Will cont to monitor. Hypertensive disorder 38 783878 I10 BP is stable in the office today. Continue current medication s. Due for labs. Follow up in 6 months, sooner PRN. Morbid obesity 994501979 E66.01 We have discussed the adverse health consequenc es of obesity today as well the benefits of weight loss. We discussed healthy eating, make small changes to diet to promote lasting habits, encouraged walking, aerobic exercise for 30 mins 3-5 days per week, advance as tolerated. F/U with any questions or concerns, will continue to monitor. Posttrauma tic stress disorder 05094836 F43.10 Pt feels stable at this time on current medication s. Continue f/u with psych. Will cont to monitor. Schizophrenia 41687855 F 20.9 Pt feels stable at this time on current medication s. Continue f/u with psych. Will cont to monitor. Impacted c erumen in right ear 2056900624 028339 H61.21 Right ear impacted w/ cerumen. She declines irrigation at today's visit. Encouraged debrox at home, avoid Q-tips. F/U PRN. Allergic conjunctivitis 647444212 H10.12 She reports not taking her antihistam joey regularly. Will work on medication compliance at this time. Encouraged to follow up with any new or worsening symptoms. Will cont to monitor. [id number] Coral Harding MD [address] [address] 10/15/2021 11:43:00 10/15/2021 12:55:49 Pain in left foot 2672767964 20694 M79.672 No acute findings on exam. Rx topical abx as below. Keep protected from further damage. Discussed nail care. F/U for routine care, sooner PRN. Difficulty performing nail care activities 717091471 Z74.1 Will refer to podiatry for nail care. Follow up PRN. [id number] Coarl Harding MD [address] [address] 12/24/2021 09:43:55 12/24/2021 11:31:36 Bilateral lower limb edema 033511827 R60.0 Trace edema to BLE w/out skin redness or pain. Will send in lasix x 5 days. Encouraged patient to elevate extremetie s. Follow up w/ new or worsening symptoms. Will cont to monitor. Abdominal pain 67837334 R10.9 ? constipati on. Encouraged to re-start metamucil. Discussed healthy diet and to increase fluid intake. Follow up with new or worsening symptoms. Will cont to monitor. [id number] DARIEN GRAF NP [facility] [address] [place] [address] 03/27/2022 13:53:10 03/27/2022 15:25:42 Bipolar disorder 04648088 F31.9 Pt feels stable at this time on current medication s. Continue f/u with psych. Will cont to monitor. Hypertensive disorder 38 583278 I10 BP is stable in the office today. Continue current medication s. Due for labs. Follow up in 6 months, sooner PRN. Obstructiv e sleep apnea syndrome 09661950 G47.33 Pt w/ a h/o BONIFACIO. Lost her CPAP machine d/t moving. Will send order for auto-pap and supplies. Aware that she may need to repeat sleep study. It is medically necessary for CPAP machine. Will cont to monitor. Schizophrenia 78330827 F 20.9 Pt feels stable at this time on current medication s. Continue f/u with psych. Will cont to monitor. Recurrent anxiety 680637 001 F41.9 Will send in RX for sertraline as listed below. Patient instructed to call the office with the correct dose of mirtazapin e and then will send that RX in as well until she is establishe d with psych. Influenza vaccine needed 8521041441 106 Z23 Pt presents for influenza vaccinatio n. Patient screened with questions from 6659-8209 Flu protocol. Discussed importance of influenza vaccine due to the patient's risk of contractin g the disease. A handout was offered to enhance understand ing of the effects and side effects of the vaccine. Body mass index 40+ - severely obese 604295130 Z68.43 Discussed BMI w/ patient. Encouraged healthy diet and to try increasing physical activity. She is interested in seeing nutritioni , will refer as below. F/U for routine care, sooner PRN. Ulnar nerv e entrapment at elbow 614238588 G56.20 Symptoms mild at this time. Encouraged bracing, gentle stretching , OTC analgesia PRN. F/U with new or worsening symptoms. Will cont to monitor. [id number] Coral Harding MD [address] [address] 08/04/2022 13:37:00 08/04/2022 14:28:14 Hypertensive disorder 36517108 I10 BP is within goal upon recheck. Continue current regimen of Labetalol 100mg BID, lisinopril 2.5mg daily, and nifedipine ER 90mg daily. Pain of left hand 146947 8675 34465 M79.642 Darleen has had left hand pain/swell ing for a couple of months without any injury or trauma. Swelling and tenderness is evident on exam. She is not able to close her fist, with worsened symptoms at the left 5th digit. Will check hand x-ray ordered below. Recommende d symptomati c management with Motrin and Tylenol. Also recommende d icing. Discussed that this could be related to carpal tunnel as well, and to wear her wrist splint at night-time to see if that helps. Follow up if worsening/ persisting . [id number] [address] [address] 10/20/2022 11:23:12 10/20/2022 13:18:07 Chest pain 06478080 R07.9 Reviewed normal workup in the hospital w/ patient and reassured that her symptoms are likely not cardiac. She does report that symptoms worsened last night after eating pepperoni, ? GERD, PUD, gastritis. Her chest wall is also TTP so discussed ? costochond ritis. She is currently in NAD, vitals are stable. At this time, will increase omeprazole to 40mg and refer to GI to discuss further. I have also asked her to try heat, gentle ROM and OTC APAP. Encouraged to avoid NSAIDs at this time. Discussed indication s for urgent follow up w/ patient. Will cont to monitor. Unable to perform nail care activities 055987730 Z74.1 Patient reporting difficulty performing nail care activities . Will refer to podiatry at this time. Will cont to monitor. Palpitations 41384835 R0 0.2 Checking Holter monitor for further eval of palpitatio ns. Discussed indication s for urgent follow up. Will cont to monitor. [id number] HAKAN GOODEN DPM [facility] [address] [place] [address] 11/25/2022 14:06:01 11/25/2022 14:33:32 Pincer nail deformity 958359375 L60.8 [id number] DARIEN GRAF NP [facility] [address] [place] [address] 12/22/2022 13:49:46 12/22/2022 14:58:21 Adult health examination 641225955 Z00.00 Patient should discuss medical decisions with Health Care Proxy. Recommende d screenings included colonoscop y screening age 45, earlier based on family history/ri sk factors; annual mammogram age 50, unless earlier based on risk factors and discussion with patient; bone density age 65, unless risk factors for earlier screening; one time screen for hepatitis C if born between 8301-3779 or has risk factors. Reviewed vaccines and current recommenda tions. Basic health topics include aerobic exercise, importance of healthy/ba lanced diet and minimizing caffeine and alcohol. Screening for malignant neoplasm of cervix 697913216 Z12.4 Discussed benefits of cervical cancer screening w/ patient. She declines at this time. Understand s we may be missing early neoplasm. She plans to discuss pap under sedation w/ automation technologist. Will continue to monitor. Advance care planning 71 0721486 Z71.89 Discussed with patient. Healthcare proxy form printed for her to review. Will scan once completed. Follow up w/ questions or concerns. At [facility] risk of sexually transmitted infection 299409024 Z20.2 No acute concerns at this time. Check labs as below. Encouraged safe sex. Will f/u pending results. Neuropathy 465970086 G62 .9 No acute findings on exam. Will recheck labs and order an EMG for further eval at this time. Encouraged to f/u with new or worsening symptoms. Will cont to monitor. Body mass index 40+ - severely obese 347013573 Z68.43 Discussed BMI w/ patient. Encouraged healthy diet and to try increasing physical activity. [facility], will refer as below. F/U for routine care, sooner PRN. Bipolar disorder 2583620 4 F31.9 Pt feels stable at this time on current medication s. Continue f/u with psych. Will cont to monitor. Borderline personality disorder 00613242 F60.3 Pt feels stable at this time on current medication s. Continue f/u with psych. Will cont to monitor. Anxiety 25953127 F41.9 Pt feels stable at this time on current medication s. Continue f/u with psych. Will cont to monitor. Gastroesop hageal reflux disease without esophagitis 029476552 K21.9 Stable on current medication s, continue. Continue f/u per GI. Will cont to monitor. Hypertensive disorder 38 561830 I10 BP is stable in the office today. Continue current medication s. Due for labs. Follow up in 6 months, sooner PRN. Obstructiv e sleep apnea syndrome [id number] G47.33 Pt w/ a h/o BONIFACIO. Lost her CPAP machine d/t moving. Will be eligible for new CPAP machine per insurance soon but will likely need new sleep study. Ordering today. Will f/u pending results. Schizophrenia [id number] F 20.9 Pt feels stable at this time on current medication s. Continue f/u with psych. Will cont to monitor. [id number] DARIEN GRAF NP [facility] [address] [place] [phone] 02/13/2023 14:23:22 02/13/2023 15:41:06 Pain of left knee joint [id number] 32261 M25.562 No acute findings on physical exam. ? OA versus sprain. Discussed treatment options. Will refer to PT at this time. Also encouraged bracing, ice, gentle ROM at home, OTC APAP PRN. Discussed indication s for urgent re-eval. Will cont to monitor. [id number] DARIEN GRAF NP [address] [address] 07/02/2023 14:17:06 07/02/2023 15:17:14 Body mass index 40+ - severely obese [id number] Z68.43 BMI 56.2. Patient reports that she is following w/ bariatrics at this time. Sia dolan gastric sleeve. Encouraged continued management per them. Discussed importance of incorporat ing healthy lifestyle changes prior to bariatric surgery to ensure success. She is seeing nutritioni st through specialist . Will continue to monitor. Altered josy wel function [id number] R19.4 No acute findings on exam. Reports alternatin g between diarrhea and constipati on, dairy makes symptoms worse. She is not willing to give up dairy at this time so suggested trial of lactaid. She declines further work up of bowel changes currently. Also suggested a trial of fiber, make sure to get plenty of fluid intake, avoid sugary drinks. Follow up for routine care, sooner PRN. [id number] DARIEN GRAF NP [address] [address] 12/04/2023 11:30:29 12/04/2023 12:10:06 Seborrheic dermatitis of scalp [id number] L21.0 Suspect seborrheic dermatitis . Will rx as noted below. Advised to use daily x 2 weeks followed by 2-3x per week. Advised to leave on scalp for 3-5 mins then rinse off. Avoid picking at the lesions. Follow up w/ new or worsening symptoms or INB despite treatment. Patient is in agreement w/ plan. [id number] DARIEN GRAF NP [address] [phone] 01/29/2024 13:18:14 01/29/2024 14:31:07 Bilateral lower leg edema [id number] R60.0 No acute findings on exam. Will provide short term refill of furosemide and check labs for further eval. Encouraged compressio n stockings, script sent to damien Cerna Will update w/ results of labs. Obstructiv e sleep apnea syndrome 88101337 G47.33 Will refer to ENT to discuss Inspire. Chest pain 47942442 R07. 9 Requesting refills. No acute concerns at this time. Tuberculos is screening 848668296 Z11.1 Needs tuberculos is screening. F/U pending results. Low back pain 108354059 M54.50 Symptoms are improved. Continue current treatment and plan to continue physical therapy. Encouraged gentle ROM at home, avoid prolonged sitting, heat PRN. Follow up w/ new or worsening symptoms. [id number] DARIEN GRAF NP [address] [phone] 04/20/2024 13:44:51 04/28/2024 09:53:22 Adult health examination [id number] Z00.00 Patient should discuss medical decisions with [facility]. Recommende d screenings included colonoscop y screening age 45, earlier based on family history/ri sk factors; annual mammogram age 40, unless earlier based on risk factors and discussion with patient; bone density age 65, unless risk factors for earlier screening; one time screen for hepatitis C if born between 9596-8712 or has risk factors. Reviewed vaccines and current recommenda tions. Basic health topics include aerobic exercise, importance of healthy/ba lanced diet and minimizing caffeine and alcohol. Screening for malignant neoplasm of cervix 130300539 Z12.4 Discussed benefits of cervical cancer screening w/ patient. She declines at this time. Understand s we may be missing early neoplasm. She plans to discuss pap under sedation w/ automation technologist. Will continue to monitor. Hepatitis C screening 40 6138633 Z11.59 The USPSTF recommends one time screening for hepatitis C virus (HCV) infection in adults aged 18 to 79 years. Anxiety 81880310 F41.9 Pt feels stable at this time on current medication s. Continue f/u with psych. Will cont to monitor. Bipolar disorder 1860932 4 F31.9 Pt feels stable at this time on current medication s. Continue f/u with psych. Will cont to monitor. Borderline personality disorder 78957120 F60.3 Pt feels stable at this time on current medication s. Continue f/u with psych. Will cont to monitor. Depressive disorder 3548 9007 F32.A PHQ9=14. Pt feels stable at this time on current medication s. Continue f/u with psych. Will cont to monitor. Gastroesop hageal reflux disease without esophagitis 470611115 K21.9 Stable on current medication s, continue. Continue f/u per GI. Will cont to monitor. Hypertensive disorder 38 928157 I10 BP is stable in the office. Continue current medication s. Morbid obesity 259113623 E66.01 We have discussed the adverse health consequenc es of obesity today as well the benefits of weight loss. We discussed healthy eating, make small changes to diet to promote lasting habits, encouraged walking, aerobic exercise for 30 mins 3-5 days per week, advance as tolerated. F/U with any questions or concerns, will continue to monitor. Posttrauma tic stress disorder 79644055 F43.10 Pt feels stable at this time on current medication s. Continue f/u with psych. Will cont to monitor. Schizophrenia 69307223 F 20.9 Pt feels stable at this time on current medication s. Continue f/u with psych. Will cont to monitor. Screening for malignant neoplasm of colon 609773661 Z12.11 Due for colon cancer screening. Discussed benefits versus risks of colonoscop y and benefits of colonoscop y versus cologuard. Discussed potential risks of cologuard including false positive or negative results. Patient verbalized an understand ing. After discussion , patient wishes to have cologuard. Aware that positive cologuard will subsequent ly require colonoscop y. Will f/u pending results. Wheezing 21536400 R06.2 No acute findings on exam. Patient reports increased wheeze w/ cold weather. Will rx ICS as below. Can continue w/ albuterol PRN. Discussed indication s for urgent re-eval. She is in agreement w/ plan. At [facility] risk of sexually transmitted infection 129800572 Z20.2 No acute concerns at this time. Check labs as below. Encouraged safe sex. Will f/u pending results. Finding of body mass index 025892988 Z68.43 See above. Schizoaffe ctive disorder 23145335 F25.0 Pt feels stable at this time on current medication s. Continue f/u with psych. Will cont to monitor. Alcohol in take above recommended sensible limits 224205459 F10.10 Patient reports increased ETOH intake since the loss of her close friend. She denies withdrawal s/sx. She has been cutting down and has discussed w/ psych/ther apist. Safety discussed. Follow up for routine care, sooner PRN. [id number] Coral Harding MD [address] [id number] 06/21/2024 09:52:51 06/21/2024 11:15:12 Bilateral lower leg edema 621692050 R60.0 Will send in short course of lasix as below. Encouraged picking up compressio n stockings. Monitor Na intake, increase hydration, elevation. Advised on s/sxs to watch for and when contact office. F/U w/ call to office on Thursday or sooner with update on edema. Morbid obesity 241617862 E66.01 Pt requesting A1C to be checked while in office today. Results discussed with pt while in office. Continue to follow a healthy lifestyle w/.h [id number] Coral Harding MD [facility] [address] [place] [phone] 07/15/2024 13:41:48 07/15/2024 14:30:40 Bilateral lower leg edema 630393847 R60.0 [id number] Coral Harding MD [facility] [address] [place] [address] 07/21/2024 13:26:30 07/21/2024 15:34:11 Bilateral lower leg edema 810634710 R60.0 see orders from 06/25/24- Health Concerns Section Related Observation LastModified by Organization Detai ls LastModified Time None Recorded Concern Status LastModified by Organization Details LastModified Time None Recorded Advance Directives Directive N: Payers Encounter Date Sequence Insurance Name Policy Number Policy Mercado Covered Member ID Mercado Member ID Guarantor Name 04/20/2024 1 [place] [facility] Darleen Aragon [id number] Darleen Haueadvis 06/21/2024 1 [place] [facility] Darleen Butlerueisen [id number] Darleen Haueisen 07/15/2024 1 [place] [facility] Darleen M Haueisen [id number] Darleen Haueisen 07/21/2024 1 [place] [facility] Darleen Davis Haueisen [id number] Darleen Hasydnie Notes Date Note Type Note Provider Name and Address Organization Details Recorded Time 04/20/2024 text/html 43 year old aria teran presents today for her CPE BPD/depression/anx iety/PTSD/schizoph jose ramon-Follows closely w/ psych. Receives social supports through [employer]. Currently on escitalopram, hydroxyzine, lamotrigine, lorazepam, mirtazapine, olanzapine, prazosin, quetiapine. Reports that she isn't sleeping well. Has been drinking lately as well. Feels stressed about this. Had 4 drinks on her birthday. Has also smoked weed a few times. A close friend had so she was spending time w/ group of friends who drink/smoke often. Is also requesting STD testing. Had intercourse w/ an ex recently and has been told that he has tested positive for STDs in the past. Patient herself is post-menopausal per [facility] x 3. She denies pelvic pain, change in vaginal discharge, fever, chills. Unable to tolerate pelvic exams d/t prior h/o trauma. Has discussed ETOH intake w/ psych. GERD-Continues on omeprazole PO daily. She had EGD in 2022. HTN-Currently on labetalol, nifedipine. She denies chest pain, edema, heart palps. BONIFACIO-Severe Restrictive lung disease-has been wheezing a lot. This is typical for her in cold air w/ exertion. Has a proair inhaler that helps. Uses twice per day as needed. PFTs done in 2017 were essentially normal except for a slight decrease in total lung capacity and diffusion capacity likely reflective of body's morbid obesity and body habitus. No chest pain, shortness of breath. DAREIN GRAF NP [address] [place] [address], [phone], [facility] 04/26/2024 11:12:27 06/21/2024 text/html 44yr old female presents to office for BLE 1+ pitting edema.compression stockings sent in 05/19/24Pt also asked to have her A1c done since they had a hard time getting previously. DBVisiting RN states that she is very concerned about the edema over the W/E. Pt states that it was swollen, tight and hurt to walk. DB Pt has not gotten compression stockings, has been sick w/ cough and sore throat. no longer sick.Some SOB. Denies any pain today, redness or warmth in BLE. Coral Harding MD [address] [place] [address], [phone], [facility] 07/03/2024 15:24:52 07/15/2024 text/html Pt presents to office for labs. Attempted lab draw 2x, 2 unsuccessful attempts. Pt would prefer to go to hospital lab. Coral Harding MD [address] [place], [place] [address] [place], [phone], [facility] 07/24/2024 09:46:50 07/21/2024 text/html [facility] Coral Harding MD [address] [place], [place] [address], [phone], [facility] 07/23/2024 16:44:17 OBGyn Episode No OBEpisode recorded.
--- OUTSIDE RECORDS SUMMARY | 2024-09-20 20:23 | XMS_ITS | Encounter Summary ---
Author Organization [facility] Address [address] [place] [address] Care Team Providers Care Order Dispatcher Chief Name Role Phone Stefanie Marques MD Primary Care Provider [phone] Reason for Visit * Reason Comments Mental Health Problem Encounter Details Date Type Department Care Team (Late st Contact Info) Description 08/25/2024 7:59 PM EST - 08/26/2024 10:22 AM EST Emergency [facility] Emergency Department [address] [place] [address] Da Hawk MD [address] [place] [id number] Anthony Petit MD [address] [place] [id number] Gera Li MD [address] [place] [id number] 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 (HCC) (Primary Dx) Discharge Disposition: Short Term/Acute Care [facility] (02) Social History Tobacco Use Types Packs/Day [...] Sign Reading Time Taken Comments Blood Pressure 133/88 08/26/2024 8:28 AM EST Pulse 111 08/26/2024 8:48 AM EST Temperature 36.2 ??C (97.1 ??F) 08/26/2024 8:28 AM ES T Respiratory Rate 18 08/25/2024 8:07 PM EST Oxygen Saturation 94% 08/26/2024 8:28 AM EST Inhaled Oxygen Concentration - - [...] tablet Take 150 mg by mouth nightly. senna (SENOKOT) 8.6 mg tablet Take 2 tablets (17.2 mg total) by mouth nightly. 10/07/2022 umeclidinium-orestes anteroL (Anoro Ellipta) 62.5-25 mcg/actuation blister with device Inhale 1 puff by mouth once a day. lidocaine (LIDODERM) 5% patch Apply 1 patch topically to the affected area once a day. Remove and discard patch within 12 hours or as directed. 12 patch 01/20/2024 5 methocarbamoL (ROBAXIN) 500 mg tablet Take 1 tablet (500 mg total) by mouth 2 times a day. 20 tablet 01/20/2024 5 mirtazapine (REMERON) 45 mg tablet Take 45 mg by mouth nightly. 5 omeprazole OTC (PriLOSEC OTC) 20 mg EC tablet Take 20 mg by mouth daily. 04/29/2016 5 documented as of this encounter ED Notes * Da Hawk MD - 08/25/2024 7:40 PM EST History HPI: Chief Complaint Patient presents with Mental Health Problem HPI This is a 44 y.o. female with significant PMHx of anxiety, depression, schizophrenia who presents to the ED concern for manic symptoms. Patient notes she has had multiple recent stressors including some family deaths as well as attempting to get a new job. She notes that she has not been taking her medication faithfully and has had increasing racing thoughts, has had increased bending and has notslept in approximately 36 to 48 hours. She notes she has not been hospitalized since 2019. She ultimately comes in by EMS and police and was placed on a section 12 due to her symptoms. Reportedly hadintermittent SI but denies this to me. Does note she drank several nips of alcohol but none currentl y. No history of withdrawal. She denies any medical complaints. Patient History Past Medical History: Diagnosis Date Anemia Anxiety Cellulitis Cellulitis of right breast 09/25/2016 Depression Gout HLD (hyperlipidemia) HTN (hypertension) Restrictive lung disease Vertigo Past Surgical History: Procedure Laterality Date CHOLECYSTECTOMY NH APPENDECTOMY N/A History of Appendectomy NH DELIVERY ONLY N/A History of Section NH REMOVAL OF FALLOPIAN TUBE N/A History of [...] Margo Legal sex: Female Gender Identity Patient's gender identity: Female Patient's sex assigned at : Female Organ Inventory Organs the patient currently has: Organs present at or expected at to develop: Organs surgically enhanced or constructed: Organs hormonally enhanced or developed: breasts cervix ovaries uterus vagina penis prostate testes Review of Systems REVIEW OF SYSTEMS: Physical Exam Physical Exam ED Triage Vitals [08/25/242006] Temp Heart Rate Resp BP SpO2 36.9 ??C (98.5 ??F) 65 18 125/78 95 % Temp Source Heart Rate Source Patient Position BP Location Set FiO2 (O2%) Oral Pulse Oximeter Sitting Right arm -- Physical Exam Vitals and nursing note reviewed. Constitutional: Comments: Alert, no distress, somewhat disheveled appearing HENT: Head: Normocephalic and atraumatic. Mouth/Throat: Mouth: Mucous membranes are moist. Eyes: General: No scleral icterus. Pupils: Pupils are equal, round, and reactive to light. Cardiovascular: Rate and Rhythm: Normal rate. Pulses: Normal pulses. Pulmonary: Effort: Pulmonary effort is normal. Breath sounds: Normal breath sounds. Abdominal: Palpations: Abdomen is soft. Musculoskeletal: Cervical back: Normal range of motion and neck supple. Comments: Legs warm and perfused Skin: General: Skin is warm and dry. Neurological: Mental Status: She is alert. Comments: Alert and oriented Psychiatric: Mood and Affect: Mood normal. Comments: Somewhat withdrawn, no active SI HI not responding to internal stimuli Medical Decision Making and ED Course MDM 44 y.o. female with PMHx as noted above presents with concern for manic symptoms as well as reportedly previously endorsed SI statements. Here she is mildly disheveled but in no distress. She is interactive and appropriate. Notes she has not been fully cooperative with medication due to recent family stressors. She has no medical complaints and vital signs are reassuring. Suspect decompensated psychiatric illness in the setting of medication nonuse and potential stressors. She has no signs of trauma or other concomitant medical concern. She was placed on a section 12 by law enforcement prior to arrival. Will order meds, discussed with [facility] and plan for psychiatric evaluation and stabilization for further plan of care. Darleen Ryan Margo : 1980 CSN: [id number] Da Hawk MD 08/26/24 0806 documented in this encounter Miscellaneous Notes * ED Continuation of Care - Gera Li MD - 08/26/2024 6:28 AM EST ED Continuation of Care Darleen Aragon : 1980 CSN: [id number] 6:28 AM 08/26/24 I assumed care of this patient from the previous ED provider, Dr. Anthony Petit Md. Patient here with behavioral health concerns. Please see the documentation from previous providers and ED course below for full clinical course and any acute events that occurred during my shift. ED Course ED Course as of 08/26/24 1544 Fri Aug 26, 2024 0840 Patient accepted to [facility] by Dr Rosenthal [PL] ED Course User Index [PL] Gera Li MD MDM Gera Li MD, PhD Department of Emergency Medicine [facility] This note was completed with the assistance of voice recognition software. Although it has been reviewed for errors, please excuse any typos or inaccurate word replacements. documented in this encounter Plan of Treatment Upcoming Encounters Date Type Department Care Team (Late st Contact Info) Description 09/29/2024 8:30 AM EDT Office Visit [facility] [address] [facility] [address] [place] [address] Jose Haskins OD [address] [place] [address] documented as of this encounter Procedures * Due to [place] [employer] law, this organization might not be sharing negative HIV tests. Procedure Name Priority Date/Time Associated Diagnosis Comments RAPID COVID-19 RNA FOR SURVEILLANCE (ED ONLY) STAT 08/25/2024 9:36 PM EST documented in this encounter Results * Due to [place] [employer] law, this organization might not be sharing negative HIV tests. * Rapid COVID-19 for Surveillance - Psych/Admission (08/25/2024 9:36 PM EST) [facility] PCR, SARS CoV-2 RNA Not Detected Not Detected CEPHEID GENEXPERT 08/25/2024 10:14 PM EST [facility] Comment:A Not Detected (Nega tive) [...] PM EST 08/25/2024 9:36 PM EST Narrative [facility] - 08/25/2024 10:14 PM EST This test was developed, validated and its performance characteristics determined by [facility]. This test has not been cleared or approved by the U.S. Food and Drug Administration (FDA). FDA Policy for Diagnostic Tests for Coronavirus Disease-2019 during the Public Health Emergency issued October 03, 2019, is followed. us Da Hawk MD LAB BODY FLUIDS AND STOOLS ORDERABLES Final Result [facility] [address] [place] [address], documented in this encounter Visit Diagnoses Diagnosis 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 (HCC)- Primary documented in this encounter Administered Medications Inactive Administered Medications - up to 3 most recent administrations Medication Order MAR Action Action Date Dose Rate Site acetaminophen (TYLENOL) tablet 650 mg 650 mg, oral, Every 4 hours PRN, pain, Starting on Ange 08/25/24 at 2326, Until Thu08/26/24 at 1222 Given 08/26/2024 12:45 AM EST 650 mg aspirin EC tablet 81 mg 81 mg, oral, Daily, First dose on Thu08/26/24 at 0900, Until Discontinued, Do not crush. Given 08/26/2024 9:00 AM EST 81 mg cholecalciferol (VITAMIN D3) tablet 2,000 Units 2,000 Units, oral, Daily, First dose on Thu08/26/24 at 0900, Until Discontinued, Vitamin D3 1000 units = 25 mcg Given 08/26/2024 9:00 AM EST 2,000 Units ferrous sulfate EC tablet 325 mg 325 mg, oral, Daily, First dose on Thu08/26/24 at 0900, Until Discontinued, Do not chew or crush. Administer with water or juice between meals for maximum absorption. May administer with food if GI upset occurs; do not administer with milk or milk products. Given 08/26/2024 9:00 AM EST 325 mg fish oil capsule 1,200 mg 1,200 mg, oral, Daily, First dose on Thu08/26/24 at 0900, Until Discontinued Given 08/26/2024 9:00 AM EST 1,200 mg hydrOXYzine HCL (ATARAX) tablet 50 mg 50 mg, oral, Once, On Thu08/25/24 at 2020, 1 dose Given 08/25/2024 9:30 PM EST 50 mg hydrOXYzine HCL (ATARAX) tablet 50 mg 50 mg, oral, 3 times daily PRN, anxiety, Starting on Thu08/25/24 at 2326, Until Thu08/26/24 at 1222 Given 08/26/2024 9:19 AM EST 50 mg lamoTRIgine (LaMICtal) tablet 225 mg 225 mg, oral, Daily, First dose on Thu08/26/24 at 0900, Until Discontinued Given 08/26/2024 9:00 AM EST 225 mg mirtazapine (REMERON) tablet 45 mg 45 mg, oral, Nightly, First dose on Thu08/25/24 at 2330, Until Discontinued Given 08/26/2024 12:45 AM EST 45 mg multivitamin 1 tablet 1 tablet, oral, Daily, First dose on Thu08/26/24 at 0900, Until Discontinued Given 08/26/2024 9:00 AM EST 1 tablet NIFEdipine XL (PROCARDIA XL) tablet 90 mg 90 mg, oral, Daily, First dose on Thu08/26/24 at 0900, Until Discontinued, Do not crush. Given 08/26/2024 9:00 AM EST 90 mg OLANZapine (ZyPREXA) tablet 20 mg 20 mg, oral, Nightly, First dose on Thu08/25/24 at 2330, Until Discontinued Given 08/26/2024 12:45 AM EST [address] (PROTONIX) tablet 20 mg 20 mg, oral, 2 times daily, First dose on Thu08/26/24 at 0900, Until Discontinued, Do not crush. Given 08/26/2024 9:00 AM EST 20 mg QUEtiapine (SEROquel) tablet 100 mg 100 mg, oral, Nightly, First dose on Thu08/25/24 at 2330, Until Discontinued Given 08/26/2024 12:45 AM EST 100 mg documented in this encounter Active and Recently Administered Medications Times are shown in EST. Scheduled Medication Order 08/24/2024 08/25/2024 08/26/2024 aspirin EC tablet 81 mg 81 mg, oral, Daily, First dose on Thu08/26/24 at 0900, Until Discontinued, Do not crush. 0900 (Given - Provid er: Danii Rey RN) cholecalciferol (VITAMIN D3) tablet 2,000 Units 2,000 Units, oral, Daily, First dose on Thu08/26/24 at 0900, Until Discontinued, Vitamin D3 1000 units = 25 mcg 0900 (Given - Provid er: Danii Rey RN) docusate sodium (COLACE) capsule 100 mg 100 mg, oral, 2 times daily, First dose on Thu08/26/24 at 0900, Until Discontinued 899 (Not Given - Provider: Danii Rey RN - Reason: Patient/family refused) ferrous sulfate EC tablet 325 mg 325 mg, oral, Daily, First dose on Thu08/26/24 at 0900, Until Discontinued, Do not chew or crush. Administer with water or juice between meals for maximum absorption. May administer with food if GI upset occurs; do not administer with milk or milk products. 09 (Given - Provid er: Danii Rey RN) fish oil capsule 1,200 mg 1,200 mg, oral, Daily, First dose on Thu08/26/24 at 0900, Until Discontinued 09 (Given - Provid er: Danii Rey RN) hydrOXYzine HCL (ATARAX) tablet 50 mg (CANCELED) 50 mg, oral, Once, On Thu08/25/24 at 2020, 1 dose 0 (Given - Provider: Radha Johnson RN) lamoTRIgine (LaMICtal) tablet 225 mg 225 mg, oral, Daily, First dose on Thu08/26/24 at 0900, Until Discontinued 09 (Given - Provid er: Danii Rey RN) mirtazapine (REMERON) tablet 45 mg 45 mg, oral, Nightly, First dose on Thu08/25/24 at 2330, Until Discontinued 44 (Given - Provid er: Radha Johnson RN) multivitamin 1 tablet 1 tablet, oral, Daily, First dose on Thu08/26/24 at 0900, Until Discontinued 0900 (Given - Provid er: Danii Rey RN) NIFEdipine XL (PROCARDIA XL) tablet 90 mg 90 mg, oral, Daily, First dose on 08/26/24 at 0900, Until Discontinued, Do not crush. 0900 (Given - Provid er: Danii Rey RN) OLANZapine (ZyPREXA) tablet 20 mg 20 mg, oral, Nightly, First dose on Ange 08/25/24 at 2330, Until Discontinued 004 (Given - Provid er: Radha Jonhson RN) pantoprazole DR (PROTONIX) tablet 20 mg 20 mg, oral, 2 times daily, First dose on 08/26/24 at 0900, Until Discontinued, Do not crush. 0900 (Given - Provid er: Danii Rey RN) QUEtiapine (SEROquel) tablet 100 mg 100 mg, oral, Nightly, First dose on Ange 08/25/24 at 2330, Until Discontinued 004 (Given - Provid er: Radha Johnson RN) PRN Medication Order 08/24/2024 08/25/2024 08/26/2024 acetaminophen (TYLENOL) tablet 650 mg 650 mg, oral, Every 4 hours PRN, pain, Starting on Ange 08/25/24 at 2326, Until Thu08/26/24 at 1222 0045 (Given - Provid er: Radha Johnson RN) hydrOXYzine HCL (ATARAX) tablet 50 mg 50 mg, oral, 3 times daily PRN, anxiety, Starting on Ange 08/25/24 at 2326, Until Thu08/26/24 at 1222 0919 (Given - Provid er: Danii Rey RN) documented in this encounter Care Teams Order Dispatcher Chief Relationship Specialty Start Date End Date Stefanie Marques MD [address] [place] [address] [phone] PCP - General Internal Medicine 04/07/18 documented as of this encounter
[2024-09-20 22:44] VITALS: BP 128/78; PULSE 90; RESP 18; TEMP 36.4; O2SAT 95
[2024-09-20] MEDS: Docusate Sodium 100 MG CAPSULE PO (22:46)
[2024-09-20] MEDS: Labetalol HCL 200 MG TABLET PO (22:48)
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
[2024-09-21] MEDS: cephALEXin 500 MG CAPSULE PO ×3 (00:33→12:33)
[2024-09-21] MEDS: Acetaminophen 325 MG TABLET 650 MG PO ×2 (01:44→10:43)
[2024-09-21] MEDS: LORazepam 0.5 MG TABLET PO (06:21)
[2024-09-21 07:49] VITALS: BP 141/83; PULSE 89; RESP 16; TEMP 36.5; O2SAT 95
[2024-09-21] MEDS: Loratadine 10 MG TABLET PO (08:00)
[2024-09-21] MEDS: Multivitamin TABLET 1 TAB PO (08:00)
[2024-09-21] MEDS: Docusate Sodium 100 MG CAPSULE PO (08:00)
[2024-09-21] MEDS: Ferrous Sulfate 324 MG TABLET.DR PO (08:00)
[2024-09-21] MEDS: Labetalol HCL 200 MG TABLET PO (08:00)
[2024-09-21] MEDS: NIFEdipine ER 90 MG TAB.ER.24 PO (08:00)
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
[2024-09-21 08:42] LABS: MANUAL DIFF FLAG NO
[2024-09-21 08:52] LABS: Basophils Percent Auto 0.3 % (0-2); Eosinophils Percent Auto 0.3 % (0-4); Hematocrit 39.3 % (37.0-47.0); Hemoglobin 12.7 g/dl (12.0-16.0); Imm Gran Abs Auto 0.03 X10*3/uL (0.00-0.03); Imm Gran Pct Auto 0.4 % (0.0-0.4); Lymphocytes Absolute Auto 1.7 X10*3/uL (1.2-4.9); Lymphocytes Percent Auto 21.3 % (20-40); Mean Corpuscular HGB Conc 32.3 g/dl (31.0-35.0); Mean Corpuscular Hemoglobin 26.6 pg (27.0-33.0); Mean Corpuscular Volume 82.4 fL (80.0-98.0); Mean Platelet Volume 10.3 fL (9.4-12.3); Monocytes Absolute Auto 0.7 X10*3/uL (0.1-1.2); Neutrophils Absolute Auto 5.4 x10*3/uL (2.0-8.3); Neutrophils Percent Auto 68.7 % (45-73); Platelet Count 332 X10*3/uL (160-400); Red Blood Count 4.77 X10*6/uL (4.20-5.50); Red Cell Distribution Width 14.6 % (11.0-16.0); White Blood Count 7.8 X10*3/uL (4.8-10.8)
[2024-09-21 09:04] LABS: Alanine Aminotransferase 29 U/L (0-31); Albumin Level 3.9 g/dL (3.5-5.0); Alkaline Phosphatase 80 U/L (39-117); Anion Gap 13 (12-20); Aspartate Amino Transferase 26 U/L (5-31); Bilirubin Total 0.6 mg/dL (0.0-1.0); Blood Urea Nitrogen 14 mg/dL (9-16); Calcium 9.4 mg/dL (8.4-10.2); Carbon Dioxide 26 mmol/L (22-29); Chloride 105 mmol/L (96-108); Cholesterol 148 mg/dL (<200); Estimated Glomerular Filt Rate > 60; Glucose Random 106 mg/dL (60-115); HDL Cholesterol 39 mg/dL (>40); LDL Cholesterol Calculated 64 mg/dL (<100); Potassium 3.9 mmol/L (3.3-5.1); Sodium 140 mmol/L (135-145); Total Protein 7.8 g/dL (6.5-8.0); Triglycerides 227 mg/dL (<150)
[2024-09-21 09:07] LABS: Estimated Average Glucose 94 mg/dL; Hemoglobin A1C 100.8336 umol/L; Hemoglobin A1c % 4.9 % (<6.0); Total Hemoglobin (HGBA1C) 3355.1442 umol/L
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
== END 2024-09-21 14:40 | disposition home or self-care (01) | DRG 752 ==
PROVIDERS: Physician Assistant; Admitting Provider Registered Nurse; PCP Internal Medicine; Visit Provider Psychiatry & Neurology Psychiatry
DX: F60.3 Borderline personality disorder (principal); R45.851 Suicidal ideations; L03.115 Cellulitis of right lower limb; E66.01 Morbid (severe) obesity due to excess calories; E78.5 Hyperlipidemia, unspecified; I10 Essential (primary) hypertension; L03.116 Cellulitis of left lower limb; G47.33 Obstructive sleep apnea (adult) (pediatric); K21.9 Gastro-esophageal reflux disease without esophagitis; F43.12 Post-traumatic stress disorder, chronic; Z62.810 Personal history of physical and sexual abuse in childhood; Z87.891 Personal history of nicotine dependence; Z79.82 Long term (current) use of aspirin; Z79.899 Other long term (current) drug therapy
CPT/HCPCS: 36415; 80053; 80061; 83036; 85025

== ENCOUNTER → 2024-09-20 16:54 | Outpatient (BNV) | payer MEDICAID, SELFPAY | PROVIDERS: Admitting Provider Registered Nurse; PCP Internal Medicine; Visit Provider Physician Assistant | DX: Z00.8 Encounter for other general examination (principal); L03.90 Cellulitis, unspecified; E66.01 Morbid (severe) obesity due to excess calories | CPT/HCPCS: 99222 ==

== ENCOUNTER → 2024-09-20 16:54 | Outpatient (BNV) | payer OTHER, SELFPAY | PROVIDERS: Admitting Provider Registered Nurse; PCP Internal Medicine; Visit Provider Psychiatry & Neurology Psychiatry | DX: F60.3 Borderline personality disorder (principal); F43.12 Post-traumatic stress disorder, chronic; L03.90 Cellulitis, unspecified; E66.01 Morbid (severe) obesity due to excess calories | CPT/HCPCS: 99233; 99499 ==